=== PATIENT | male | born 1935 | race Caucasian/White ===

== ENCOUNTER 2021-04-17 15:40 | Inpatient (IN) | payer OTHER ==
[2021-04-17 16:04] VITALS: BMI 28.7
[2021-04-17] MEDS ORDERED: VANCOMYCIN 1 GM in D5W (PRE-DOCKED) 1,000 MG/250 ML IVPB ONE (17:24)
[2021-04-17] MEDS ORDERED: DIPHTH,PERTUSS(ACELL),TET 0.5 ML DISP.SYRIN IM ONE (17:54)
[2021-04-17] MEDS ORDERED: VANCOMYCIN 1 GRAM (PRE-DOCKED) 1,000 MG/250 ML BAG IVPB ONE (18:11)
[2021-04-17 18:24] LABS: BASO % 0.2 % (0-2.0); EOS % 2.6 % (0-4.5); HEMOGLOBIN 12.2 GM/dL (11.7-16.9); LYMPH % 6.9 % (8-40); MCH 29.6 pg (25.7-33.7); MCHC 34.8 g/dl (32.0-35.9); MEAN PLT VOLUME 7.1 fl (7.5-11.1); MONO % 6.8 % (3.8-10.2); NEUT % 83.5 % (42.8-82.8); PLATELET COUNT 232 10^3/uL (134-434); RBC 4.12 M/mm3 (4.00-5.60); RDW 15.5 % (11.9-15.9); WHITE BLOOD COUNT 11.8 K/mm3 (4.0-10.0)
[2021-04-17 18:40] LABS: CHLORIDE 104 mmol/L (98-107); SODIUM 143 mmol/L (136-145)
[2021-04-17 18:41] LABS: CALCIUM 8.3 mg/dL (8.5-10.1); CO2 29 mmol/L (21-32); GLUCOSE,RANDOM 110 mg/dL (74-106)
[2021-04-17 18:44] LABS: SGOT/AST 14 U/L (15-37); SGPT/ALT 16 U/L (13-61)
[2021-04-17 18:45] LABS: CREATININE 2.1 mg/dL (0.55-1.3)
[2021-04-17 18:46] LABS: BILIRUBIN,TOTAL 0.6 mg/dL (0.2-1); TOT PROT 6.7 g/dl (6.4-8.2)
[2021-04-17 18:47] LABS: ALK PHOS 43 U/L (45-117)
[2021-04-17 18:58] LABS: ANION GAP 10 MMOL/L (8-16)
[2021-04-17] MEDS ORDERED: POTASSIUM CHLORIDE TABS 10 MEQ TABLET.ER (FP) PO ONE (19:02)
[2021-04-17 19:12] LABS: MAGNESIUM 2.6 mg/dL (1.8-2.4)
[2021-04-17] MEDS ORDERED: POTASSIUM CHLORIDE TABS 20 MEQ TABLET.ER (FP) PO ONE (19:45)
[2021-04-17] MEDS ORDERED: PIPERACILLIN/TAZOB 2.25 GM 2.25 GM/50 ML BAG IVPB ONE (23:24)
[2021-04-17] MEDS ORDERED: KCL 10 MEQ IVPB 10 MEQ/100 ML INFUS.BAG IVPB ONE (23:33)
[2021-04-17] MEDS: KCL 10 MEQ IVPB 10 MEQ/100 ML INFUS.BAG IVPB SCH (23:49)
[2021-04-18 00:11] LABS: EPI CELLS >36 /uL (0-25.1); HYALINE CASTS 17 /uL (0-3.1); PH,URINE 5.5 (5.0-8.0); URINE APPEARANCE CLEAR; URINE BACTERIA 5 /uL (0-1359); URINE BILIRUBIN NEGATIVE (NEGATIVE); URINE COLOR YELLOW; URINE GLUCOSE (UA) NEGATIVE (NEGATIVE); URINE KETONE NEGATIVE (NEGATIVE); URINE LEUK ESTERASE NEGATIVE (NEGATIVE); URINE NITRITE NEGATIVE (NEGATIVE); URINE PROTEIN 1+ (NEGATIVE); URINE RBC 11 /uL (0-23.9); URINE WBC 21 /uL (0-25.8)
[2021-04-18 00:17] LABS: CHLORIDE 105 mmol/L (98-107); SODIUM 142 mmol/L (136-145)
[2021-04-18 00:20] LABS: BLOOD UREA NITROGEN 36.2 mg/dL (7-18); CO2 31 mmol/L (21-32); GLUCOSE,RANDOM 146 mg/dL (74-106)
[2021-04-18 00:23] LABS: CREATININE 1.9 mg/dL (0.55-1.3)
[2021-04-18] MEDS ORDERED: KCL 10 MEQ IVPB 10 MEQ/100 ML INFUS.BAG IVPB ONE ×2 (00:49→02:15)
[2021-04-18] MEDS: KCL 10 MEQ IVPB 10 MEQ/100 ML INFUS.BAG IVPB SCH ×5 (01:01→11:47)
[2021-04-18 01:19] LABS: ANION GAP 7 MMOL/L (8-16)
[2021-04-18] MEDS ORDERED: ACETAMINOPHEN 1000 MG/100 ML VIAL IVPB ONE (06:10)
[2021-04-18] MEDS: HEPARIN NA (PORCINE) 5,000 UNITS/ML 1ML VIAL SQ SCH ×3 (06:12→21:41)
[2021-04-18 06:52] LABS: BASO % 0.4 % (0-2.0); EOS % 2.7 % (0-4.5); HEMATOCRIT 32.6 % (35.4-49); HEMOGLOBIN 11.2 GM/dL (11.7-16.9); LYMPH % 7.9 % (8-40); MCH 29.8 pg (25.7-33.7); MCHC 34.5 g/dl (32.0-35.9); MEAN CELL VOLUME 86.4 fl (80-96); MEAN PLT VOLUME 7.2 fl (7.5-11.1); MONO % 7.6 % (3.8-10.2); NEUT % 81.4 % (42.8-82.8); PLATELET COUNT 197 10^3/uL (134-434); RBC 3.77 M/mm3 (4.00-5.60); WHITE BLOOD COUNT 8.6 K/mm3 (4.0-10.0)
[2021-04-18 07:06] LABS: CHLORIDE 106 mmol/L (98-107); SODIUM 143 mmol/L (136-145)
[2021-04-18 07:12] LABS: CO2 28 mmol/L (21-32); URIC ACID 4.9 mg/dL (2.6-7.2)
[2021-04-18 07:13] LABS: CREATININE 1.7 mg/dL (0.55-1.3); MAGNESIUM 2.5 mg/dL (1.8-2.4); SGOT/AST 15 U/L (15-37); SGPT/ALT 13 U/L (13-61)
[2021-04-18 07:14] LABS: ALBUMIN 2.6 g/dl (3.4-5.0); BLOOD UREA NITROGEN 35.9 mg/dL (7-18); CALCIUM 8.1 mg/dL (8.5-10.1)
[2021-04-18 07:15] LABS: GLUCOSE,RANDOM 94 mg/dL (74-106)
[2021-04-18 07:18] LABS: PHOSPHOROUS 3.5 mg/dL (2.5-4.9)
[2021-04-18 07:19] LABS: ALK PHOS 40 U/L (45-117); BILIRUBIN,TOTAL 0.5 mg/dL (0.2-1)
[2021-04-18 07:23] LABS: ANION GAP 9 MMOL/L (8-16)
[2021-04-18] MEDS ORDERED: POTASSIUM CHLORIDE TABS 20 MEQ TABLET.ER (FP) PO ONE (08:34)
[2021-04-18] MEDS ORDERED: PT OWN MED DRAWER 7, Y5N ONE (09:09)
[2021-04-18] MEDS: CARVEDILOL 12.5 MG TABLET (FP) PO SCH ×2 (09:20→21:40)
[2021-04-18] MEDS: amLODIPine BESYLATE 10 MG TABLET (FP) PO SCH (09:20)
[2021-04-18] MEDS ORDERED: LINEZOLID 600 MG TABLET (RESTRICTED TO ID) PO SCH ×2 (10:00)
[2021-04-18] MEDS ORDERED: AMPICILLIN NA/SULBACTAM NA 3 GM VIAL ONE ×3 (12:55→23:59)
[2021-04-18] MEDS ORDERED: SODIUM CHLORIDE 100 ML IVPB ONE ×2 (12:55→16:50)
[2021-04-18] MEDS: AMPICILLIN NA/SULBACTAM NA 3 GM in SODIUM CHLORIDE 100 ML IVPB SCH ×2 (12:59→18:22)
[2021-04-18] MEDS: ATORVASTATIN CA 40 MG TABLET (FP) PO SCH (21:46)
[2021-04-19] MEDS: AMPICILLIN NA/SULBACTAM NA 3 GM in SODIUM CHLORIDE 100 ML IVPB SCH ×3 (02:03→17:31)
[2021-04-19] MEDS: HEPARIN NA (PORCINE) 5,000 UNITS/ML 1ML VIAL SQ SCH ×3 (06:42→21:52)
[2021-04-19] MEDS: ACETAMINOPHEN 325 MG TABLET (FP) PO PRN ×2 (06:43→21:53)
[2021-04-19 07:30] LABS: BASO % 0.4 % (0-2.0); EOS % 3.3 % (0-4.5); HEMATOCRIT 34.4 % (35.4-49); HEMOGLOBIN 11.8 GM/dL (11.7-16.9); LYMPH % 6.8 % (8-40); MCH 29.3 pg (25.7-33.7); MCHC 34.2 g/dl (32.0-35.9); MEAN CELL VOLUME 85.7 fl (80-96); MEAN PLT VOLUME 6.9 fl (7.5-11.1); MONO % 6.7 % (3.8-10.2); NEUT % 82.8 % (42.8-82.8); PLATELET COUNT 238 10^3/uL (134-434); RBC 4.01 M/mm3 (4.00-5.60); RDW 15.2 % (11.9-15.9); WHITE BLOOD COUNT 8.4 K/mm3 (4.0-10.0)
[2021-04-19 07:48] LABS: ALBUMIN 2.8 g/dl (3.4-5.0)
[2021-04-19 07:49] LABS: BLOOD UREA NITROGEN 22.4 mg/dL (7-18); CALCIUM 8.6 mg/dL (8.5-10.1); MAGNESIUM 2.8 mg/dL (1.8-2.4)
[2021-04-19 07:52] LABS: CREATININE 1.4 mg/dL (0.55-1.3); PHOSPHOROUS 2.6 mg/dL (2.5-4.9)
[2021-04-19 07:53] LABS: BILIRUBIN,TOTAL 0.6 mg/dL (0.2-1); TOT PROT 6.5 g/dl (6.4-8.2)
[2021-04-19] MEDS ORDERED: AMPICILLIN NA/SULBACTAM NA 3 GM VIAL ONE ×2 (07:53→16:22)
[2021-04-19] MEDS ORDERED: SODIUM CHLORIDE 100 ML IVPB ONE ×3 (07:53→16:22)
[2021-04-19] MEDS ORDERED: POTASSIUM CHLORIDE ORAL LIQUID 20 MEQ/15 ML PO ONE (08:10)
[2021-04-19] MEDS: amLODIPine BESYLATE 10 MG TABLET (FP) PO SCH (11:41)
[2021-04-19] MEDS: ASPIRIN 81 MG CHEWABLE TABLETS PO SCH (11:41)
[2021-04-19] MEDS: CARVEDILOL 12.5 MG TABLET (FP) PO SCH ×2 (11:41→22:09)
[2021-04-19] MEDS ORDERED: FLU VACC QS2021-22(6MOS UP)/PF 60 MCG/0.5 ML SYRINGE IM ONE (17:00)
[2021-04-19] MEDS: LEVALBUTEROL HCL 0.31 MG/3 ML VIAL.NEB IH PRN ×2 (19:01→22:51)
[2021-04-19] MEDS: ATORVASTATIN CA 40 MG TABLET (FP) PO SCH (21:52)
[2021-04-20] MEDS ORDERED: AMPICILLIN NA/SULBACTAM NA 3 GM VIAL ONE ×2 (02:37→08:39)
[2021-04-20] MEDS ORDERED: SODIUM CHLORIDE 100 ML IVPB ONE ×2 (02:38→08:39)
[2021-04-20] MEDS: AMPICILLIN NA/SULBACTAM NA 3 GM in SODIUM CHLORIDE 100 ML IVPB SCH ×3 (02:50→17:57)
[2021-04-20] MEDS: HEPARIN NA (PORCINE) 5,000 UNITS/ML 1ML VIAL SQ SCH ×3 (06:36→21:47)
[2021-04-20 08:34] LABS: BASO % 0.8 % (0-2.0); EOS % 2.9 % (0-4.5); HEMATOCRIT 33.9 % (35.4-49); HEMOGLOBIN 11.7 GM/dL (11.7-16.9); MCH 29.6 pg (25.7-33.7); MCHC 34.6 g/dl (32.0-35.9); MEAN CELL VOLUME 85.3 fl (80-96); MEAN PLT VOLUME 6.9 fl (7.5-11.1); MONO % 12.2 % (3.8-10.2); NEUT % 73.1 % (42.8-82.8); PLATELET COUNT 253 10^3/uL (134-434); RBC 3.97 M/mm3 (4.00-5.60); RDW 15.2 % (11.9-15.9); WHITE BLOOD COUNT 7.1 K/mm3 (4.0-10.0)
[2021-04-20] MEDS: LEVALBUTEROL HCL 0.31 MG/3 ML VIAL.NEB IH PRN ×2 (08:40→14:05)
[2021-04-20 08:57] LABS: ALBUMIN 2.9 g/dl (3.4-5.0); CALCIUM 8.5 mg/dL (8.5-10.1)
[2021-04-20 08:58] LABS: BLOOD UREA NITROGEN 12.8 mg/dL (7-18); MAGNESIUM 2.5 mg/dL (1.8-2.4)
[2021-04-20 09:01] LABS: PHOSPHOROUS 3.2 mg/dL (2.5-4.9)
[2021-04-20 09:02] LABS: BILIRUBIN,TOTAL 0.8 mg/dL (0.2-1); TOT PROT 6.7 g/dl (6.4-8.2)
[2021-04-20] MEDS: ASPIRIN 81 MG CHEWABLE TABLETS PO SCH (09:51)
[2021-04-20] MEDS: CARVEDILOL 25 MG TABLET (FP) PO SCH ×2 (09:51→21:47)
[2021-04-20] MEDS: amLODIPine BESYLATE 10 MG TABLET (FP) PO SCH (09:52)
[2021-04-20] MEDS: POTASSIUM CHLORIDE TABS 20 MEQ TABLET.ER (FP) PO SCH ×2 (13:57→21:46)
[2021-04-20] MEDS: ATORVASTATIN CA 40 MG TABLET (FP) PO SCH (21:48)
[2021-04-21] MEDS ORDERED: SODIUM CHLORIDE 100 ML IVPB ONE ×3 (00:47→16:28)
[2021-04-21] MEDS ORDERED: AMPICILLIN NA/SULBACTAM NA 3 GM VIAL ONE ×3 (00:47→16:28)
[2021-04-21] MEDS: AMPICILLIN NA/SULBACTAM NA 3 GM in SODIUM CHLORIDE 100 ML IVPB SCH ×3 (01:14→17:41)
[2021-04-21] MEDS: HEPARIN NA (PORCINE) 5,000 UNITS/ML 1ML VIAL SQ SCH ×3 (06:23→21:38)
[2021-04-21 07:39] LABS: CALCIUM 8.2 mg/dL (8.5-10.1)
[2021-04-21 07:40] LABS: ALBUMIN 2.5 g/dl (3.4-5.0); BLOOD UREA NITROGEN 15.3 mg/dL (7-18); MAGNESIUM 2.2 mg/dL (1.8-2.4)
[2021-04-21 07:43] LABS: CREATININE 1.1 mg/dL (0.55-1.3)
[2021-04-21 07:45] LABS: BILIRUBIN,TOTAL 0.7 mg/dL (0.2-1)
[2021-04-21 07:46] LABS: TOT PROT 6.1 g/dl (6.4-8.2)
[2021-04-21] MEDS: ASPIRIN 81 MG CHEWABLE TABLETS PO SCH (10:24)
[2021-04-21] MEDS: POTASSIUM CHLORIDE TABS 20 MEQ TABLET.ER (FP) PO SCH ×3 (10:25→21:38)
[2021-04-21] MEDS: CARVEDILOL 25 MG TABLET (FP) PO SCH ×2 (10:25→21:37)
[2021-04-21] MEDS: amLODIPine BESYLATE 10 MG TABLET (FP) PO SCH (10:25)
[2021-04-21] MEDS ORDERED: POTASSIUM CHLORIDE TABS 20 MEQ TABLET.ER (FP) PO SCH (11:00)
[2021-04-21] MEDS: ACETAMINOPHEN 325 MG TABLET (FP) PO PRN (12:20)
[2021-04-21] MEDS: PYRIDOSTIGMINE BROMIDE 60 MG TABLET PO SCH ×2 (13:22→21:37)
[2021-04-21 14:31] LABS: N-TERMINAL BNP 2384.3 pg/ml (5-450)
[2021-04-21] MEDS: LEVALBUTEROL HCL 0.31 MG/3 ML VIAL.NEB IH PRN (19:58)
[2021-04-21] MEDS ORDERED: PT OWN MED DRAWER 7, Y5N ONE (20:49)
[2021-04-21] MEDS: ATORVASTATIN CA 40 MG TABLET (FP) PO SCH (21:38)
[2021-04-22] MEDS ORDERED: AMPICILLIN NA/SULBACTAM NA 3 GM VIAL ONE ×3 (02:17→16:28)
[2021-04-22] MEDS ORDERED: SODIUM CHLORIDE 100 ML IVPB ONE ×3 (02:18→16:28)
[2021-04-22] MEDS: AMPICILLIN NA/SULBACTAM NA 3 GM in SODIUM CHLORIDE 100 ML IVPB SCH ×3 (02:24→17:40)
[2021-04-22] MEDS: HEPARIN NA (PORCINE) 5,000 UNITS/ML 1ML VIAL SQ SCH ×3 (06:22→21:49)
[2021-04-22] MEDS: POTASSIUM CHLORIDE TABS 20 MEQ TABLET.ER (FP) PO SCH ×3 (06:22→21:49)
[2021-04-22 07:39] LABS: BLOOD UREA NITROGEN 13.3 mg/dL (7-18); CALCIUM 7.8 mg/dL (8.5-10.1); MAGNESIUM 1.8 mg/dL (1.8-2.4)
[2021-04-22] MEDS: amLODIPine BESYLATE 10 MG TABLET (FP) PO SCH (09:24)
[2021-04-22] MEDS: CARVEDILOL 25 MG TABLET (FP) PO SCH ×2 (09:24→21:49)
[2021-04-22] MEDS: ASPIRIN 81 MG CHEWABLE TABLETS PO SCH (09:24)
[2021-04-22] MEDS ORDERED: PT OWN MED DRAWER 7, Y5N ONE ×2 (13:54→21:36)
[2021-04-22] MEDS: PYRIDOSTIGMINE BROMIDE 60 MG TABLET PO SCH ×3 (13:58→21:49)
[2021-04-22] MEDS: LEVALBUTEROL HCL 0.31 MG/3 ML VIAL.NEB IH PRN (14:23)
[2021-04-22] MEDS: ATORVASTATIN CA 40 MG TABLET (FP) PO SCH (21:49)
[2021-04-23] MEDS ORDERED: AMPICILLIN NA/SULBACTAM NA 3 GM VIAL ONE ×4 (01:42→16:52)
[2021-04-23] MEDS ORDERED: SODIUM CHLORIDE 100 ML IVPB ONE ×3 (01:42→16:44)
[2021-04-23] MEDS: AMPICILLIN NA/SULBACTAM NA 3 GM in SODIUM CHLORIDE 100 ML IVPB SCH ×3 (02:21→17:11)
[2021-04-23] MEDS: ACETAMINOPHEN 325 MG TABLET (FP) PO PRN ×2 (02:34→09:15)
[2021-04-23] MEDS: LEVALBUTEROL HCL 0.31 MG/3 ML VIAL.NEB IH PRN ×2 (03:57→17:05)
[2021-04-23] MEDS ORDERED: guaiFENesin/D-METHORPHAN HB 10 ML UNIT-DOSE CUPS PO ONE (06:08)
[2021-04-23] MEDS: PYRIDOSTIGMINE BROMIDE 60 MG TABLET PO SCH ×3 (06:15→21:51)
[2021-04-23] MEDS: POTASSIUM CHLORIDE TABS 20 MEQ TABLET.ER (FP) PO SCH ×3 (06:15→21:52)
[2021-04-23] MEDS: HEPARIN NA (PORCINE) 5,000 UNITS/ML 1ML VIAL SQ SCH ×3 (06:15→21:53)
[2021-04-23] MEDS ORDERED: PT OWN MED DRAWER 7, Y5N ONE ×3 (06:40→21:36)
[2021-04-23 07:01] LABS: BASO % 0.6 % (0-2.0); EOS % 1.7 % (0-4.5); HEMATOCRIT 33.3 % (35.4-49); HEMOGLOBIN 11.4 GM/dL (11.7-16.9); LYMPH % 7.9 % (8-40); MCH 29.9 pg (25.7-33.7); MCHC 34.3 g/dl (32.0-35.9); MEAN PLT VOLUME 6.9 fl (7.5-11.1); MONO % 8.1 % (3.8-10.2); NEUT % 81.7 % (42.8-82.8); PLATELET COUNT 348 10^3/uL (134-434); RBC 3.83 M/mm3 (4.00-5.60); RDW 15.5 % (11.9-15.9)
[2021-04-23 07:28] LABS: ALBUMIN 2.6 g/dl (3.4-5.0)
[2021-04-23 07:29] LABS: MAGNESIUM 2.1 mg/dL (1.8-2.4)
[2021-04-23 07:31] LABS: PHOSPHOROUS 3.4 mg/dL (2.5-4.9)
[2021-04-23 07:33] LABS: BILIRUBIN,TOTAL 0.8 mg/dL (0.2-1); TOT PROT 6.6 g/dl (6.4-8.2)
[2021-04-23] MEDS: amLODIPine BESYLATE 10 MG TABLET (FP) PO SCH (09:15)
[2021-04-23] MEDS: CARVEDILOL 25 MG TABLET (FP) PO SCH ×2 (09:15→21:53)
[2021-04-23] MEDS: ASPIRIN 81 MG CHEWABLE TABLETS PO SCH (09:15)
[2021-04-23] MEDS: FUROSEMIDE 40 MG/4 ML INJECTABLE VIAL IVPUSH SCH (09:39)
[2021-04-23] MEDS ORDERED: TORSEMIDE 20 MG TABLET (FP) PO SCH (10:00)
[2021-04-23] MEDS: MENTHOL/PHENOL 1 EACH UD MM PRN (21:50)
[2021-04-24] MEDS: ATORVASTATIN CA 40 MG TABLET (FP) PO SCH ×2 (00:22→21:29)
[2021-04-24] MEDS: ACETAMINOPHEN 325 MG TABLET (FP) PO PRN (00:32)
[2021-04-24] MEDS ORDERED: AMPICILLIN NA/SULBACTAM NA 3 GM VIAL ONE ×2 (03:08→09:14)
[2021-04-24] MEDS ORDERED: SODIUM CHLORIDE 100 ML IVPB ONE ×2 (03:08→09:15)
[2021-04-24] MEDS: AMPICILLIN NA/SULBACTAM NA 3 GM in SODIUM CHLORIDE 100 ML IVPB SCH ×2 (03:16→09:26)
[2021-04-24] MEDS: LEVALBUTEROL HCL 0.31 MG/3 ML VIAL.NEB IH PRN ×3 (04:05→20:10)
[2021-04-24] MEDS: POTASSIUM CHLORIDE TABS 20 MEQ TABLET.ER (FP) PO SCH ×3 (05:56→21:29)
[2021-04-24] MEDS: HEPARIN NA (PORCINE) 5,000 UNITS/ML 1ML VIAL SQ SCH ×3 (05:57→21:30)
[2021-04-24] MEDS: PYRIDOSTIGMINE BROMIDE 60 MG TABLET PO SCH ×3 (05:58→21:30)
[2021-04-24] MEDS: guaiFENesin/D-M SUGAR-FREE/ACLHOL-FREE 118 ML BOTTLE PO PRN ×2 (06:00→10:47)
[2021-04-24] MEDS: MENTHOL/PHENOL 1 EACH UD MM PRN ×3 (06:00→18:09)
[2021-04-24 07:27] LABS: BASO % 0.5 % (0-2.0); EOS % 1.9 % (0-4.5); HEMATOCRIT 31.6 % (35.4-49); LYMPH % 9.9 % (8-40); MCH 29.6 pg (25.7-33.7); MCHC 34.7 g/dl (32.0-35.9); MEAN CELL VOLUME 85.3 fl (80-96); MEAN PLT VOLUME 6.9 fl (7.5-11.1); MONO % 8.8 % (3.8-10.2); NEUT % 78.9 % (42.8-82.8); PLATELET COUNT 317 10^3/uL (134-434); RBC 3.71 M/mm3 (4.00-5.60); RDW 15.4 % (11.9-15.9); WHITE BLOOD COUNT 7.5 K/mm3 (4.0-10.0)
[2021-04-24 08:52] LABS: ALBUMIN 2.4 g/dl (3.4-5.0); BILIRUBIN,TOTAL 0.7 mg/dL (0.2-1); BLOOD UREA NITROGEN 15.5 mg/dL (7-18); CALCIUM 8.2 mg/dL (8.5-10.1); PHOSPHOROUS 3.8 mg/dL (2.5-4.9); TOT PROT 6.4 g/dl (6.4-8.2)
[2021-04-24] MEDS ORDERED: PT OWN MED DRAWER 7, Y5N ONE ×2 (09:16→21:24)
[2021-04-24] MEDS: ASPIRIN 81 MG CHEWABLE TABLETS PO SCH (09:21)
[2021-04-24] MEDS: CARVEDILOL 25 MG TABLET (FP) PO SCH ×2 (09:22→21:30)
[2021-04-24] MEDS: amLODIPine BESYLATE 10 MG TABLET (FP) PO SCH (09:23)
[2021-04-24] MEDS: FUROSEMIDE 40 MG/4 ML INJECTABLE VIAL IVPUSH SCH ×2 (09:23→14:21)
[2021-04-24] MEDS: ACETYLCYSTEINE 20% 200MG/ML 4 ML VIAL *FOR ORAL / INH USE ONLY NEB SCH ×3 (14:56→20:09)
[2021-04-24] MEDS ORDERED: PIPERACILLIN/TAZOBACTAM 3.375 GM VIAL IVPB ONE (17:16)
[2021-04-24] MEDS ORDERED: DEXTROSE 5%-WATER - 50 ML IVPB ONE (17:16)
[2021-04-24] MEDS: PIPERACILLIN/TAZOB 3.375 GM 3.375 GM in DEXTROSE 5%-WATER - 50 ML IVPB SCH (18:09)
[2021-04-25] MEDS ORDERED: DEXTROSE 5%-WATER - 50 ML IVPB ONE ×3 (00:25→17:11)
[2021-04-25] MEDS ORDERED: PIPERACILLIN/TAZOBACTAM 3.375 GM VIAL IVPB ONE ×3 (00:25→17:11)
[2021-04-25] MEDS: PIPERACILLIN/TAZOB 3.375 GM 3.375 GM in DEXTROSE 5%-WATER - 50 ML IVPB SCH ×3 (01:05→17:27)
[2021-04-25] MEDS: guaiFENesin/D-M SUGAR-FREE/ACLHOL-FREE 118 ML BOTTLE PO PRN ×3 (01:58→22:10)
[2021-04-25] MEDS: MENTHOL/PHENOL 1 EACH UD MM PRN ×2 (03:22→15:38)
[2021-04-25] MEDS: LEVALBUTEROL HCL 0.31 MG/3 ML VIAL.NEB IH PRN ×2 (04:52→08:10)
[2021-04-25] MEDS ORDERED: PT OWN MED DRAWER 7, Y5N ONE ×3 (05:24→19:59)
[2021-04-25] MEDS: FUROSEMIDE 40 MG/4 ML INJECTABLE VIAL IVPUSH SCH ×2 (05:27→13:13)
[2021-04-25] MEDS: PYRIDOSTIGMINE BROMIDE 60 MG TABLET PO SCH ×3 (05:27→21:32)
[2021-04-25] MEDS: POTASSIUM CHLORIDE TABS 20 MEQ TABLET.ER (FP) PO SCH (05:27)
[2021-04-25 07:37] LABS: BASO % 0.7 % (0-2.0); EOS % 2.6 % (0-4.5); HEMATOCRIT 31.5 % (35.4-49); HEMOGLOBIN 10.8 GM/dL (11.7-16.9); LYMPH % 7.7 % (8-40); MCH 29.3 pg (25.7-33.7); MCHC 34.2 g/dl (32.0-35.9); MEAN CELL VOLUME 85.7 fl (80-96); MEAN PLT VOLUME 6.7 fl (7.5-11.1); MONO % 9.6 % (3.8-10.2); NEUT % 79.4 % (42.8-82.8); PLATELET COUNT 384 10^3/uL (134-434); RBC 3.67 M/mm3 (4.00-5.60); RDW 15.4 % (11.9-15.9); WHITE BLOOD COUNT 9.2 K/mm3 (4.0-10.0)
[2021-04-25] MEDS: ACETYLCYSTEINE 20% 200MG/ML 4 ML VIAL *FOR ORAL / INH USE ONLY NEB SCH ×4 (08:10→20:02)
[2021-04-25 08:12] LABS: ALBUMIN 2.5 g/dl (3.4-5.0); CALCIUM 8.2 mg/dL (8.5-10.1)
[2021-04-25 08:13] LABS: BLOOD UREA NITROGEN 21.7 mg/dL (7-18); MAGNESIUM 1.9 mg/dL (1.8-2.4)
[2021-04-25 08:15] LABS: CREATININE 1.2 mg/dL (0.55-1.3)
[2021-04-25 08:16] LABS: BILIRUBIN,TOTAL 1.2 mg/dL (0.2-1); TOT PROT 6.4 g/dl (6.4-8.2)
[2021-04-25] MEDS: amLODIPine BESYLATE 10 MG TABLET (FP) PO SCH (09:22)
[2021-04-25] MEDS: CARVEDILOL 25 MG TABLET (FP) PO SCH ×2 (09:23→21:31)
[2021-04-25] MEDS: ASPIRIN 81 MG CHEWABLE TABLETS PO SCH (09:23)
[2021-04-25] MEDS: LEVALBUTEROL HCL 0.31 MG/3 ML VIAL.NEB IH SCH ×3 (12:18→20:02)
[2021-04-25] MEDS: POTASSIUM CHLORIDE ORAL LIQUID 20 MEQ/15 ML PO SCH (13:13)
[2021-04-25] MEDS ORDERED: POTASSIUM CHLORIDE ORAL LIQUID 20 MEQ/15 ML PO SCH (14:00)
[2021-04-25] MEDS: methylPREDNISolone NA SUCC 40 MG/1 ML VIAL IVPUSH SCH ×3 (14:18→21:09)
[2021-04-25] MEDS: ATORVASTATIN CA 40 MG TABLET (FP) PO SCH (21:31)
[2021-04-26] MEDS: LEVALBUTEROL HCL 0.31 MG/3 ML VIAL.NEB IH SCH ×6 (00:32→20:13)
[2021-04-26] MEDS ORDERED: PIPERACILLIN/TAZOBACTAM 3.375 GM VIAL IVPB ONE ×3 (01:20→18:06)
[2021-04-26] MEDS ORDERED: DEXTROSE 5%-WATER - 50 ML IVPB ONE ×3 (01:20→18:06)
[2021-04-26] MEDS: PIPERACILLIN/TAZOB 3.375 GM 3.375 GM in DEXTROSE 5%-WATER - 50 ML IVPB SCH ×3 (01:25→18:13)
[2021-04-26] MEDS: methylPREDNISolone NA SUCC 40 MG/1 ML VIAL IVPUSH SCH ×4 (02:12→22:07)
[2021-04-26] MEDS: PYRIDOSTIGMINE BROMIDE 60 MG TABLET PO SCH ×3 (06:41→22:11)
[2021-04-26] MEDS: FUROSEMIDE 40 MG/4 ML INJECTABLE VIAL IVPUSH SCH ×2 (06:45→14:50)
[2021-04-26 08:10] LABS: HEMATOCRIT 31.3 % (35.4-49); HEMOGLOBIN 10.8 GM/dL (11.7-16.9); MCH 29.8 pg (25.7-33.7); MCHC 34.6 g/dl (32.0-35.9); MEAN CELL VOLUME 86.2 fl (80-96); MEAN PLT VOLUME 7.3 fl (7.5-11.1); PLATELET COUNT 397 10^3/uL (134-434); RBC 3.63 M/mm3 (4.00-5.60); RDW 15.2 % (11.9-15.9); WHITE BLOOD COUNT 9.4 K/mm3 (4.0-10.0)
[2021-04-26 08:13] LABS: ALBUMIN 2.5 g/dl (3.4-5.0); CALCIUM 8.2 mg/dL (8.5-10.1); MAGNESIUM 2.5 mg/dL (1.8-2.4)
[2021-04-26 08:14] LABS: BLOOD UREA NITROGEN 26.4 mg/dL (7-18)
[2021-04-26 08:16] LABS: CREATININE 1.3 mg/dL (0.55-1.3); PHOSPHOROUS 4.6 mg/dL (2.5-4.9)
[2021-04-26 08:18] LABS: BILIRUBIN,TOTAL 0.8 mg/dL (0.2-1); TOT PROT 6.4 g/dl (6.4-8.2)
[2021-04-26] MEDS: ACETYLCYSTEINE 20% 200MG/ML 4 ML VIAL *FOR ORAL / INH USE ONLY NEB SCH ×4 (08:30→20:13)
[2021-04-26] MEDS ORDERED: DOCUSATE SODIUM 100 MG CAPSULE (FP) PO PRN (09:32)
[2021-04-26 10:02] LABS: ANISOCYTOSIS 1+; MACROCYTOSIS 0; OVALOCYTE 1+; PLATELET ESTIMATE NORMAL; TEAR DROP CELLS 1+
[2021-04-26] MEDS: amLODIPine BESYLATE 10 MG TABLET (FP) PO SCH (10:02)
[2021-04-26] MEDS: POLYETHYLENE GLYCOL (HEALTHYLAX) 3350 17 GM PACKET PO SCH (10:03)
[2021-04-26] MEDS: CARVEDILOL 25 MG TABLET (FP) PO SCH ×2 (10:03→22:10)
[2021-04-26] MEDS: POTASSIUM CHLORIDE ORAL LIQUID 20 MEQ/15 ML PO SCH (10:03)
[2021-04-26] MEDS: ASPIRIN 81 MG CHEWABLE TABLETS PO SCH (10:03)
[2021-04-26] MEDS ORDERED: PT OWN MED DRAWER 7, Y5N ONE ×2 (14:41→21:41)
[2021-04-26] MEDS: ATORVASTATIN CA 40 MG TABLET (FP) PO SCH (22:10)
[2021-04-26] MEDS: SENNOSIDES 8.6MG TABLET (FP) PO SCH (22:10)
[2021-04-27] MEDS: LEVALBUTEROL HCL 0.31 MG/3 ML VIAL.NEB IH SCH ×6 (00:28→19:51)
[2021-04-27] MEDS ORDERED: PIPERACILLIN/TAZOBACTAM 3.375 GM VIAL IVPB ONE ×3 (02:31→17:08)
[2021-04-27] MEDS: methylPREDNISolone NA SUCC 40 MG/1 ML VIAL IVPUSH SCH ×3 (02:36→17:15)
[2021-04-27] MEDS: PIPERACILLIN/TAZOB 3.375 GM 3.375 GM in DEXTROSE 5%-WATER - 50 ML IVPB SCH ×3 (02:37→17:15)
[2021-04-27] MEDS ORDERED: PT OWN MED DRAWER 7, Y5N ONE ×3 (05:40→21:21)
[2021-04-27] MEDS: PYRIDOSTIGMINE BROMIDE 60 MG TABLET PO SCH ×3 (05:58→21:32)
[2021-04-27] MEDS: FUROSEMIDE 40 MG/4 ML INJECTABLE VIAL IVPUSH SCH ×2 (05:59→13:43)
[2021-04-27 07:23] LABS: HEMATOCRIT 32.9 % (35.4-49); HEMOGLOBIN 11.1 GM/dL (11.7-16.9); MCH 29.1 pg (25.7-33.7); MCHC 33.6 g/dl (32.0-35.9); MEAN CELL VOLUME 86.6 fl (80-96); MEAN PLT VOLUME 7.3 fl (7.5-11.1); PLATELET COUNT 545 10^3/uL (134-434); RDW 15.2 % (11.9-15.9); WHITE BLOOD COUNT 17.9 K/mm3 (4.0-10.0)
[2021-04-27 07:40] LABS: ALBUMIN 2.8 g/dl (3.4-5.0); BLOOD UREA NITROGEN 34.8 mg/dL (7-18); CALCIUM 8.4 mg/dL (8.5-10.1); MAGNESIUM 2.5 mg/dL (1.8-2.4)
[2021-04-27] MEDS: ACETYLCYSTEINE 20% 200MG/ML 4 ML VIAL *FOR ORAL / INH USE ONLY NEB SCH ×4 (07:40→19:51)
[2021-04-27 07:42] LABS: CREATININE 1.5 mg/dL (0.55-1.3)
[2021-04-27 07:45] LABS: BILIRUBIN,TOTAL 0.6 mg/dL (0.2-1)
[2021-04-27] MEDS ORDERED: DEXTROSE 5%-WATER - 50 ML IVPB ONE ×2 (09:07→17:08)
[2021-04-27] MEDS: CARVEDILOL 25 MG TABLET (FP) PO SCH ×2 (09:15→21:32)
[2021-04-27] MEDS: ASPIRIN 81 MG CHEWABLE TABLETS PO SCH (09:15)
[2021-04-27] MEDS: POLYETHYLENE GLYCOL (HEALTHYLAX) 3350 17 GM PACKET PO SCH (09:15)
[2021-04-27] MEDS: amLODIPine BESYLATE 10 MG TABLET (FP) PO SCH (09:15)
[2021-04-27 09:45] LABS: ANISOCYTOSIS 0; HELMET CELLS 0; HOWELL-JOLLY BODIES 0; MACROCYTOSIS 0; OVALOCYTE 0; PLATELET ESTIMATE INCREASED; ROULEAU 0; SICKELED CELLS 0; TARGET CELLS 0; TEAR DROP CELLS 0; TOXIC GRANULATION 0
[2021-04-27] MEDS: PANTOPRAZOLE 40 MG TABLET PO SCH (12:15)
[2021-04-27] MEDS: guaiFENesin/D-M SUGAR-FREE/ACLHOL-FREE 118 ML BOTTLE PO PRN (21:31)
[2021-04-27] MEDS: HEPARIN NA (PORCINE) 5,000 UNITS/ML 1ML VIAL SQ SCH (21:32)
[2021-04-27] MEDS: SENNOSIDES 8.6MG TABLET (FP) PO SCH (21:32)
[2021-04-27] MEDS: ATORVASTATIN CA 40 MG TABLET (FP) PO SCH (21:32)
[2021-04-28] MEDS: LEVALBUTEROL HCL 0.31 MG/3 ML VIAL.NEB IH SCH ×6 (00:38→20:49)
[2021-04-28] MEDS ORDERED: PT OWN MED DRAWER 7, Y5N ONE ×4 (01:14→20:00)
[2021-04-28] MEDS: MENTHOL/PHENOL 1 EACH UD MM PRN (01:16)
[2021-04-28] MEDS: methylPREDNISolone NA SUCC 40 MG/1 ML VIAL IVPUSH SCH ×2 (03:15→10:16)
[2021-04-28] MEDS: PIPERACILLIN/TAZOB 3.375 GM 3.375 GM in DEXTROSE 5%-WATER - 50 ML IVPB SCH ×3 (03:15→17:37)
[2021-04-28] MEDS ORDERED: PIPERACILLIN/TAZOBACTAM 3.375 GM VIAL IVPB ONE ×3 (03:21→16:52)
[2021-04-28] MEDS ORDERED: DEXTROSE 5%-WATER - 50 ML IVPB ONE ×3 (03:21→16:52)
[2021-04-28] MEDS: PYRIDOSTIGMINE BROMIDE 60 MG TABLET PO SCH ×3 (05:26→21:27)
[2021-04-28] MEDS: FUROSEMIDE 40 MG/4 ML INJECTABLE VIAL IVPUSH SCH (05:26)
[2021-04-28] MEDS: guaiFENesin/D-M SUGAR-FREE/ACLHOL-FREE 118 ML BOTTLE PO PRN (05:26)
[2021-04-28] MEDS: ACETYLCYSTEINE 20% 200MG/ML 4 ML VIAL *FOR ORAL / INH USE ONLY NEB SCH ×4 (07:23→15:11)
[2021-04-28 08:33] LABS: HEMATOCRIT 30.7 % (35.4-49); HEMOGLOBIN 10.6 GM/dL (11.7-16.9); MCH 29.4 pg (25.7-33.7); MCHC 34.5 g/dl (32.0-35.9); MEAN CELL VOLUME 85.5 fl (80-96); PLATELET COUNT 489 10^3/uL (134-434); RBC 3.59 M/mm3 (4.00-5.60); RDW 15.4 % (11.9-15.9); WHITE BLOOD COUNT 13.4 K/mm3 (4.0-10.0)
[2021-04-28 09:11] LABS: BLOOD UREA NITROGEN 43.4 mg/dL (7-18); CALCIUM 7.6 mg/dL (8.5-10.1)
[2021-04-28 09:15] LABS: CREATININE 1.7 mg/dL (0.55-1.3)
[2021-04-28] MEDS: amLODIPine BESYLATE 10 MG TABLET (FP) PO SCH (10:16)
[2021-04-28] MEDS: ASPIRIN 81 MG CHEWABLE TABLETS PO SCH (10:16)
[2021-04-28] MEDS: PANTOPRAZOLE 40 MG TABLET PO SCH (10:16)
[2021-04-28] MEDS: HEPARIN NA (PORCINE) 5,000 UNITS/ML 1ML VIAL SQ SCH ×2 (10:17→21:26)
[2021-04-28] MEDS: POLYETHYLENE GLYCOL (HEALTHYLAX) 3350 17 GM PACKET PO SCH (10:17)
[2021-04-28 11:03] LABS: ANISOCYTOSIS 0; HELMET CELLS 0; HOWELL-JOLLY BODIES 0; MACROCYTOSIS 0; OVALOCYTE 0; PLATELET ESTIMATE INCREASED; ROULEAU 0; SICKELED CELLS 0; TARGET CELLS 0; TEAR DROP CELLS 0; TOXIC GRANULATION 0
[2021-04-28] MEDS: FUROSEMIDE 40 MG TABLET (FP) PO SCH (14:26)
[2021-04-28] MEDS: CARVEDILOL 25 MG TABLET (FP) PO SCH ×2 (14:26→21:26)
[2021-04-28] MEDS: ATORVASTATIN CA 40 MG TABLET (FP) PO SCH (21:27)
[2021-04-28] MEDS: SENNOSIDES 8.6MG TABLET (FP) PO SCH (21:27)
[2021-04-29] MEDS: LEVALBUTEROL HCL 0.31 MG/3 ML VIAL.NEB IH SCH ×6 (00:12→20:10)
[2021-04-29] MEDS ORDERED: DEXTROSE 5%-WATER - 50 ML IVPB ONE ×3 (00:43→18:51)
[2021-04-29] MEDS ORDERED: PIPERACILLIN/TAZOBACTAM 3.375 GM VIAL IVPB ONE ×3 (00:43→18:51)
[2021-04-29] MEDS: PIPERACILLIN/TAZOB 3.375 GM 3.375 GM in DEXTROSE 5%-WATER - 50 ML IVPB SCH ×3 (01:00→18:50)
[2021-04-29] MEDS: FUROSEMIDE 40 MG TABLET (FP) PO SCH ×2 (06:22→14:40)
[2021-04-29] MEDS: PYRIDOSTIGMINE BROMIDE 60 MG TABLET PO SCH ×3 (06:22→21:02)
[2021-04-29] MEDS: ACETYLCYSTEINE 20% 200MG/ML 4 ML VIAL *FOR ORAL / INH USE ONLY NEB SCH ×4 (07:35→21:27)
[2021-04-29 08:04] LABS: HEMATOCRIT 29.5 % (35.4-49); HEMOGLOBIN 10.4 GM/dL (11.7-16.9); MCH 30.1 pg (25.7-33.7); MCHC 35.2 g/dl (32.0-35.9); MEAN CELL VOLUME 85.3 fl (80-96); MEAN PLT VOLUME 7.3 fl (7.5-11.1); PLATELET COUNT 492 10^3/uL (134-434); RBC 3.46 M/mm3 (4.00-5.60); RDW 15.5 % (11.9-15.9); WHITE BLOOD COUNT 11.4 K/mm3 (4.0-10.0)
[2021-04-29 08:22] LABS: CALCIUM 7.5 mg/dL (8.5-10.1)
[2021-04-29 08:24] LABS: ALBUMIN 2.4 g/dl (3.4-5.0); BLOOD UREA NITROGEN 50.6 mg/dL (7-18)
[2021-04-29 08:27] LABS: BILIRUBIN,TOTAL 0.5 mg/dL (0.2-1); CREATININE 1.6 mg/dL (0.55-1.3)
[2021-04-29] MEDS: ASPIRIN 81 MG CHEWABLE TABLETS PO SCH (09:21)
[2021-04-29] MEDS: CARVEDILOL 25 MG TABLET (FP) PO SCH ×2 (09:21→21:02)
[2021-04-29] MEDS: amLODIPine BESYLATE 10 MG TABLET (FP) PO SCH (09:21)
[2021-04-29] MEDS: HEPARIN NA (PORCINE) 5,000 UNITS/ML 1ML VIAL SQ SCH ×2 (09:22→21:01)
[2021-04-29] MEDS: PANTOPRAZOLE 40 MG TABLET PO SCH (09:22)
[2021-04-29] MEDS: POLYETHYLENE GLYCOL (HEALTHYLAX) 3350 17 GM PACKET PO SCH (09:23)
[2021-04-29] MEDS: methylPREDNISolone NA SUCC 40 MG/1 ML VIAL IVPUSH SCH (09:23)
[2021-04-29] MEDS ORDERED: LEVALBUTEROL HCL 0.63 MG/3 ML VIAL.NEB. IH ONE (20:24)
[2021-04-29] MEDS ORDERED: PT OWN MED DRAWER 7, Y5N ONE (20:50)
[2021-04-29] MEDS: ATORVASTATIN CA 40 MG TABLET (FP) PO SCH (21:02)
[2021-04-29] MEDS: SENNOSIDES 8.6MG TABLET (FP) PO SCH (21:02)
[2021-04-29] MEDS: guaiFENesin/D-M SUGAR-FREE/ACLHOL-FREE 118 ML BOTTLE PO PRN (22:10)
[2021-04-30] MEDS: LEVALBUTEROL HCL 0.31 MG/3 ML VIAL.NEB IH SCH ×3 (00:11→08:25)
[2021-04-30] MEDS ORDERED: PIPERACILLIN/TAZOBACTAM 3.375 GM VIAL IVPB ONE ×2 (01:18→08:22)
[2021-04-30] MEDS ORDERED: DEXTROSE 5%-WATER - 50 ML IVPB ONE ×2 (01:18→08:22)
[2021-04-30] MEDS: PIPERACILLIN/TAZOB 3.375 GM 3.375 GM in DEXTROSE 5%-WATER - 50 ML IVPB SCH ×2 (01:44→09:37)
[2021-04-30] MEDS: PYRIDOSTIGMINE BROMIDE 60 MG TABLET PO SCH ×3 (05:24→22:20)
[2021-04-30] MEDS: FUROSEMIDE 40 MG TABLET (FP) PO SCH (05:24)
[2021-04-30] MEDS: guaiFENesin/D-M SUGAR-FREE/ACLHOL-FREE 118 ML BOTTLE PO PRN (05:26)
[2021-04-30 08:26] LABS: BASO % 0.1 % (0-2.0); HEMATOCRIT 30.1 % (35.4-49); HEMOGLOBIN 10.7 GM/dL (11.7-16.9); LYMPH % 5.4 % (8-40); MCH 30.1 pg (25.7-33.7); MCHC 35.5 g/dl (32.0-35.9); MEAN CELL VOLUME 84.7 fl (80-96); NEUT % 86.5 % (42.8-82.8); PLATELET COUNT 497 10^3/uL (134-434); RBC 3.55 M/mm3 (4.00-5.60); RDW 15.2 % (11.9-15.9); WHITE BLOOD COUNT 11.6 K/mm3 (4.0-10.0)
[2021-04-30] MEDS: ACETYLCYSTEINE 20% 200MG/ML 4 ML VIAL *FOR ORAL / INH USE ONLY NEB SCH ×4 (08:26→21:00)
[2021-04-30 08:56] LABS: ALBUMIN 2.3 g/dl (3.4-5.0); BLOOD UREA NITROGEN 45.8 mg/dL (7-18); CALCIUM 7.4 mg/dL (8.5-10.1)
[2021-04-30 08:57] LABS: MAGNESIUM 2.3 mg/dL (1.8-2.4)
[2021-04-30 09:00] LABS: CREATININE 1.6 mg/dL (0.55-1.3); PHOSPHOROUS 4.5 mg/dL (2.5-4.9)
[2021-04-30 09:02] LABS: BILIRUBIN,TOTAL 0.5 mg/dL (0.2-1); TOT PROT 5.9 g/dl (6.4-8.2)
[2021-04-30] MEDS: PANTOPRAZOLE 40 MG TABLET PO SCH (09:37)
[2021-04-30] MEDS: amLODIPine BESYLATE 10 MG TABLET (FP) PO SCH (09:37)
[2021-04-30] MEDS: CARVEDILOL 25 MG TABLET (FP) PO SCH ×2 (09:37→22:19)
[2021-04-30] MEDS: HEPARIN NA (PORCINE) 5,000 UNITS/ML 1ML VIAL SQ SCH ×2 (09:37→22:19)
[2021-04-30] MEDS: ASPIRIN 81 MG CHEWABLE TABLETS PO SCH (09:37)
[2021-04-30] MEDS: POLYETHYLENE GLYCOL (HEALTHYLAX) 3350 17 GM PACKET PO SCH (09:37)
[2021-04-30] MEDS: methylPREDNISolone NA SUCC 40 MG/1 ML VIAL IVPUSH SCH (09:37)
[2021-04-30] MEDS: FUROSEMIDE 40 MG/4 ML INJECTABLE VIAL IVPUSH SCH (13:46)
[2021-04-30] MEDS: AMOX TR/POT CLAV 500MG/125MG TABLETS (FP) PO SCH (19:01)
[2021-04-30] MEDS ORDERED: LEVALBUTEROL HCL 0.31 MG/3 ML VIAL.NEB IH ONE (20:56)
[2021-04-30] MEDS ORDERED: ALBUTEROL SO4 0.083% IH SOL 2.5 MG/3 ML VIAL.NEB. NEB ONE (21:00)
[2021-04-30] MEDS ORDERED: PT OWN MED DRAWER 7, Y5N ONE (22:17)
[2021-04-30] MEDS: SENNOSIDES 8.6MG TABLET (FP) PO SCH (22:20)
[2021-04-30] MEDS: ATORVASTATIN CA 40 MG TABLET (FP) PO SCH (22:20)
[2021-05-01] MEDS: FUROSEMIDE 40 MG/4 ML INJECTABLE VIAL IVPUSH SCH ×2 (05:21→15:05)
[2021-05-01] MEDS: PYRIDOSTIGMINE BROMIDE 60 MG TABLET PO SCH ×3 (05:25→21:00)
[2021-05-01 07:59] LABS: BASO % 0.1 % (0-2.0); EOS % 0.1 % (0-4.5); HEMATOCRIT 33.4 % (35.4-49); HEMOGLOBIN 11.5 GM/dL (11.7-16.9); LYMPH % 6.8 % (8-40); MCH 29.4 pg (25.7-33.7); MCHC 34.3 g/dl (32.0-35.9); MEAN CELL VOLUME 85.9 fl (80-96); MEAN PLT VOLUME 7.1 fl (7.5-11.1); MONO % 8.9 % (3.8-10.2); NEUT % 84.1 % (42.8-82.8); PLATELET COUNT 577 10^3/uL (134-434); RBC 3.89 M/mm3 (4.00-5.60); RDW 15.1 % (11.9-15.9); WHITE BLOOD COUNT 10.9 K/mm3 (4.0-10.0)
[2021-05-01 08:14] LABS: CALCIUM 7.8 mg/dL (8.5-10.1)
[2021-05-01 08:15] LABS: ALBUMIN 2.3 g/dl (3.4-5.0); BLOOD UREA NITROGEN 41.3 mg/dL (7-18); MAGNESIUM 2.5 mg/dL (1.8-2.4)
[2021-05-01 08:18] LABS: CREATININE 1.4 mg/dL (0.55-1.3); PHOSPHOROUS 3.6 mg/dL (2.5-4.9)
[2021-05-01 08:20] LABS: BILIRUBIN,TOTAL 0.4 mg/dL (0.2-1); TOT PROT 5.9 g/dl (6.4-8.2)
[2021-05-01] MEDS: ACETYLCYSTEINE 20% 200MG/ML 4 ML VIAL *FOR ORAL / INH USE ONLY NEB SCH ×4 (09:00→20:10)
[2021-05-01] MEDS: AMOX TR/POT CLAV 500MG/125MG TABLETS (FP) PO SCH ×2 (09:31→17:22)
[2021-05-01] MEDS: ASPIRIN 81 MG CHEWABLE TABLETS PO SCH (09:32)
[2021-05-01] MEDS: HEPARIN NA (PORCINE) 5,000 UNITS/ML 1ML VIAL SQ SCH ×2 (09:32→21:01)
[2021-05-01] MEDS: PANTOPRAZOLE 40 MG TABLET PO SCH (09:32)
[2021-05-01] MEDS: methylPREDNISolone NA SUCC 40 MG/1 ML VIAL IVPUSH SCH (09:32)
[2021-05-01] MEDS: CARVEDILOL 25 MG TABLET (FP) PO SCH (09:32)
[2021-05-01] MEDS: amLODIPine BESYLATE 10 MG TABLET (FP) PO SCH (09:32)
[2021-05-01] MEDS: POLYETHYLENE GLYCOL (HEALTHYLAX) 3350 17 GM PACKET PO SCH (09:32)
[2021-05-01] MEDS ORDERED: LEVALBUTEROL HCL 0.31 MG/3 ML VIAL.NEB IH PRN (10:28)
[2021-05-01] MEDS ORDERED: PT OWN MED DRAWER 7, Y5N ONE ×3 (14:55→20:52)
[2021-05-01] MEDS: LEVALBUTEROL HCL 0.31 MG/3 ML VIAL.NEB IH PRN ×2 (16:00→20:10)
[2021-05-01] MEDS: SENNOSIDES 8.6MG TABLET (FP) PO SCH (21:00)
[2021-05-01] MEDS: CARVEDILOL 12.5 MG TABLET (FP) PO SCH (21:00)
[2021-05-01] MEDS: ATORVASTATIN CA 40 MG TABLET (FP) PO SCH (21:00)
[2021-05-02] MEDS: PYRIDOSTIGMINE BROMIDE 60 MG TABLET PO SCH ×3 (05:10→21:31)
[2021-05-02] MEDS: FUROSEMIDE 40 MG/4 ML INJECTABLE VIAL IVPUSH SCH ×2 (05:10→15:28)
[2021-05-02 07:18] LABS: HEMATOCRIT 35.2 % (35.4-49); HEMOGLOBIN 12.3 GM/dL (11.7-16.9); MCH 29.8 pg (25.7-33.7); MCHC 34.9 g/dl (32.0-35.9); MEAN CELL VOLUME 85.6 fl (80-96); PLATELET COUNT 624 10^3/uL (134-434); RBC 4.11 M/mm3 (4.00-5.60); RDW 15.2 % (11.9-15.9); WHITE BLOOD COUNT 10.7 K/mm3 (4.0-10.0)
[2021-05-02] MEDS: LEVALBUTEROL HCL 0.31 MG/3 ML VIAL.NEB IH PRN ×3 (07:25→20:26)
[2021-05-02] MEDS: ACETYLCYSTEINE 20% 200MG/ML 4 ML VIAL *FOR ORAL / INH USE ONLY NEB SCH ×4 (07:25→20:26)
[2021-05-02 07:50] LABS: ALBUMIN 2.6 g/dl (3.4-5.0)
[2021-05-02 07:51] LABS: MAGNESIUM 2.7 mg/dL (1.8-2.4)
[2021-05-02 07:54] LABS: CREATININE 1.2 mg/dL (0.55-1.3); PHOSPHOROUS 3.5 mg/dL (2.5-4.9)
[2021-05-02 07:56] LABS: BILIRUBIN,TOTAL 0.6 mg/dL (0.2-1); TOT PROT 6.1 g/dl (6.4-8.2)
[2021-05-02] MEDS: AMOX TR/POT CLAV 500MG/125MG TABLETS (FP) PO SCH ×2 (08:22→18:53)
[2021-05-02 09:43] LABS: ANISOCYTOSIS 0; HELMET CELLS 0; HOWELL-JOLLY BODIES 0; MACROCYTOSIS 0; OVALOCYTE 0; PLATELET ESTIMATE INCREASED; ROULEAU 0; SICKELED CELLS 0; TARGET CELLS 0; TEAR DROP CELLS 0; TOXIC GRANULATION 0
[2021-05-02] MEDS: POLYETHYLENE GLYCOL (HEALTHYLAX) 3350 17 GM PACKET PO SCH (10:11)
[2021-05-02] MEDS: CARVEDILOL 12.5 MG TABLET (FP) PO SCH ×2 (10:13→21:31)
[2021-05-02] MEDS: PANTOPRAZOLE 40 MG TABLET PO SCH (10:13)
[2021-05-02] MEDS: amLODIPine BESYLATE 10 MG TABLET (FP) PO SCH (10:13)
[2021-05-02] MEDS: ASPIRIN 81 MG CHEWABLE TABLETS PO SCH (10:13)
[2021-05-02] MEDS: HEPARIN NA (PORCINE) 5,000 UNITS/ML 1ML VIAL SQ SCH ×2 (10:13→21:35)
[2021-05-02] MEDS: methylPREDNISolone NA SUCC 40 MG/1 ML VIAL IVPUSH SCH (10:14)
[2021-05-02] MEDS ORDERED: PT OWN MED DRAWER 7, Y5N ONE ×4 (13:59→20:25)
[2021-05-02] MEDS: ATORVASTATIN CA 40 MG TABLET (FP) PO SCH (21:31)
[2021-05-02] MEDS: SENNOSIDES 8.6MG TABLET (FP) PO SCH (21:31)
[2021-05-03] MEDS ORDERED: PT OWN MED DRAWER 7, Y5N ONE ×2 (05:48→14:21)
[2021-05-03] MEDS: FUROSEMIDE 40 MG/4 ML INJECTABLE VIAL IVPUSH SCH ×2 (06:06→14:32)
[2021-05-03] MEDS: PYRIDOSTIGMINE BROMIDE 60 MG TABLET PO SCH ×3 (06:06→22:04)
[2021-05-03 07:17] LABS: BASO % 0.1 % (0-2.0); EOS % 0.1 % (0-4.5); LYMPH % 6.6 % (8-40); MCH 29.5 pg (25.7-33.7); MCHC 34.4 g/dl (32.0-35.9); MEAN CELL VOLUME 85.8 fl (80-96); MEAN PLT VOLUME 6.9 fl (7.5-11.1); MONO % 8.6 % (3.8-10.2); NEUT % 84.6 % (42.8-82.8); PLATELET COUNT 596 10^3/uL (134-434); RBC 4.07 M/mm3 (4.00-5.60); RDW 15.4 % (11.9-15.9)
[2021-05-03 07:51] LABS: ALBUMIN 2.4 g/dl (3.4-5.0); BILIRUBIN,TOTAL 0.5 mg/dL (0.2-1); BLOOD UREA NITROGEN 31.2 mg/dL (7-18); TOT PROT 6.1 g/dl (6.4-8.2)
[2021-05-03 07:54] LABS: CREATININE 1.2 mg/dL (0.55-1.3); PHOSPHOROUS 3.3 mg/dL (2.5-4.9)
[2021-05-03 07:58] LABS: CALCIUM 8.6 mg/dL (8.5-10.1); MAGNESIUM 2.6 mg/dL (1.8-2.4)
[2021-05-03] MEDS: LEVALBUTEROL HCL 0.31 MG/3 ML VIAL.NEB IH PRN ×3 (08:35→20:37)
[2021-05-03] MEDS: ACETYLCYSTEINE 20% 200MG/ML 4 ML VIAL *FOR ORAL / INH USE ONLY NEB SCH ×4 (08:35→20:36)
[2021-05-03] MEDS: AMOX TR/POT CLAV 500MG/125MG TABLETS (FP) PO SCH (09:05)
[2021-05-03] MEDS: CARVEDILOL 12.5 MG TABLET (FP) PO SCH ×2 (09:05→22:04)
[2021-05-03] MEDS: HEPARIN NA (PORCINE) 5,000 UNITS/ML 1ML VIAL SQ SCH ×2 (09:06→22:04)
[2021-05-03] MEDS: amLODIPine BESYLATE 10 MG TABLET (FP) PO SCH (09:06)
[2021-05-03] MEDS: ASPIRIN 81 MG CHEWABLE TABLETS PO SCH (09:06)
[2021-05-03] MEDS: PANTOPRAZOLE 40 MG TABLET PO SCH (09:06)
[2021-05-03] MEDS: POLYETHYLENE GLYCOL (HEALTHYLAX) 3350 17 GM PACKET PO SCH (14:32)
[2021-05-03] MEDS: MENTHOL/PHENOL 1 EACH UD MM PRN (14:33)
[2021-05-03] MEDS: ATORVASTATIN CA 40 MG TABLET (FP) PO SCH (22:04)
[2021-05-03] MEDS: SENNOSIDES 8.6MG TABLET (FP) PO SCH (22:04)
[2021-05-04] MEDS: FUROSEMIDE 40 MG/4 ML INJECTABLE VIAL IVPUSH SCH ×2 (05:37→13:42)
[2021-05-04] MEDS: PYRIDOSTIGMINE BROMIDE 60 MG TABLET PO SCH ×3 (05:37→21:10)
[2021-05-04] MEDS: ACETYLCYSTEINE 20% 200MG/ML 4 ML VIAL *FOR ORAL / INH USE ONLY NEB SCH ×4 (07:34→21:00)
[2021-05-04] MEDS: LEVALBUTEROL HCL 0.31 MG/3 ML VIAL.NEB IH PRN ×3 (07:34→21:00)
[2021-05-04 08:32] LABS: BASO % 0.3 % (0-2.0); EOS % 0.2 % (0-4.5); HEMATOCRIT 37.2 % (35.4-49); LYMPH % 6.5 % (8-40); MCH 29.7 pg (25.7-33.7); MCHC 34.9 g/dl (32.0-35.9); MEAN PLT VOLUME 6.8 fl (7.5-11.1); MONO % 8.3 % (3.8-10.2); NEUT % 84.7 % (42.8-82.8); PLATELET COUNT 491 10^3/uL (134-434); RBC 4.37 M/mm3 (4.00-5.60); RDW 15.6 % (11.9-15.9); WHITE BLOOD COUNT 16.7 K/mm3 (4.0-10.0)
[2021-05-04 08:50] LABS: ALBUMIN 2.5 g/dl (3.4-5.0); BLOOD UREA NITROGEN 29.2 mg/dL (7-18)
[2021-05-04 08:53] LABS: CALCIUM 8.4 mg/dL (8.5-10.1)
[2021-05-04 08:54] LABS: CREATININE 1.1 mg/dL (0.55-1.3); MAGNESIUM 2.2 mg/dL (1.8-2.4); PHOSPHOROUS 3.2 mg/dL (2.5-4.9)
[2021-05-04 08:55] LABS: BILIRUBIN,TOTAL 1.2 mg/dL (0.2-1); TOT PROT 6.2 g/dl (6.4-8.2)
[2021-05-04] MEDS: amLODIPine BESYLATE 10 MG TABLET (FP) PO SCH (09:26)
[2021-05-04] MEDS: POLYETHYLENE GLYCOL (HEALTHYLAX) 3350 17 GM PACKET PO SCH (09:26)
[2021-05-04] MEDS: PANTOPRAZOLE 40 MG TABLET PO SCH (09:26)
[2021-05-04] MEDS: ASPIRIN 81 MG CHEWABLE TABLETS PO SCH (09:26)
[2021-05-04] MEDS: CARVEDILOL 12.5 MG TABLET (FP) PO SCH ×2 (09:26→21:07)
[2021-05-04] MEDS: HEPARIN NA (PORCINE) 5,000 UNITS/ML 1ML VIAL SQ SCH (09:26)
[2021-05-04] MEDS ORDERED: PT OWN MED DRAWER 7, Y5N ONE ×3 (13:35→21:10)
[2021-05-04] MEDS: ATORVASTATIN CA 40 MG TABLET (FP) PO SCH (21:07)
[2021-05-04] MEDS: SENNOSIDES 8.6MG TABLET (FP) PO SCH (21:08)
[2021-05-04] MEDS: guaiFENesin/D-M SUGAR-FREE/ACLHOL-FREE 118 ML BOTTLE PO PRN (21:08)
[2021-05-05] MEDS ORDERED: PT OWN MED DRAWER 7, Y5N ONE ×3 (06:05→21:02)
[2021-05-05] MEDS: FUROSEMIDE 40 MG/4 ML INJECTABLE VIAL IVPUSH SCH (06:23)
[2021-05-05] MEDS: PYRIDOSTIGMINE BROMIDE 60 MG TABLET PO SCH ×3 (06:23→21:03)
[2021-05-05] MEDS: guaiFENesin/D-M SUGAR-FREE/ACLHOL-FREE 118 ML BOTTLE PO PRN (06:24)
[2021-05-05] MEDS: ACETAMINOPHEN 325 MG TABLET (FP) PO PRN ×2 (06:24→22:57)
[2021-05-05 07:57] LABS: BASO % 0.1 % (0-2.0); EOS % 1.5 % (0-4.5); HEMATOCRIT 34.6 % (35.4-49); HEMOGLOBIN 12.2 GM/dL (11.7-16.9); LYMPH % 8.1 % (8-40); MCH 30.1 pg (25.7-33.7); MCHC 35.3 g/dl (32.0-35.9); MEAN CELL VOLUME 85.3 fl (80-96); MONO % 8.1 % (3.8-10.2); NEUT % 82.2 % (42.8-82.8); PLATELET COUNT 454 10^3/uL (134-434); RBC 4.06 M/mm3 (4.00-5.60); RDW 15.7 % (11.9-15.9); WHITE BLOOD COUNT 11.7 K/mm3 (4.0-10.0)
[2021-05-05] MEDS: ACETYLCYSTEINE 20% 200MG/ML 4 ML VIAL *FOR ORAL / INH USE ONLY NEB SCH ×4 (08:10→20:46)
[2021-05-05 08:11] LABS: CALCIUM 8.1 mg/dL (8.5-10.1)
[2021-05-05 08:12] LABS: ALBUMIN 2.4 g/dl (3.4-5.0); BLOOD UREA NITROGEN 29.6 mg/dL (7-18)
[2021-05-05 08:15] LABS: CREATININE 1.3 mg/dL (0.55-1.3)
[2021-05-05 08:16] LABS: BILIRUBIN,TOTAL 0.6 mg/dL (0.2-1)
[2021-05-05] MEDS: LEVALBUTEROL HCL 0.31 MG/3 ML VIAL.NEB IH PRN ×3 (08:34→15:43)
[2021-05-05] MEDS: PANTOPRAZOLE 40 MG TABLET PO SCH (10:56)
[2021-05-05] MEDS: amLODIPine BESYLATE 10 MG TABLET (FP) PO SCH (10:56)
[2021-05-05] MEDS: CARVEDILOL 12.5 MG TABLET (FP) PO SCH ×2 (10:56→21:03)
[2021-05-05] MEDS: ASPIRIN 81 MG CHEWABLE TABLETS PO SCH (10:57)
[2021-05-05] MEDS: POLYETHYLENE GLYCOL (HEALTHYLAX) 3350 17 GM PACKET PO SCH (10:57)
[2021-05-05] MEDS: ATORVASTATIN CA 40 MG TABLET (FP) PO SCH (21:03)
[2021-05-05] MEDS: SENNOSIDES 8.6MG TABLET (FP) PO SCH (21:03)
[2021-05-06] MEDS: PYRIDOSTIGMINE BROMIDE 60 MG TABLET PO SCH ×3 (05:11→21:53)
[2021-05-06] MEDS: LEVALBUTEROL HCL 0.31 MG/3 ML VIAL.NEB IH PRN ×3 (07:20→20:10)
[2021-05-06] MEDS: ACETYLCYSTEINE 20% 200MG/ML 4 ML VIAL *FOR ORAL / INH USE ONLY NEB SCH ×4 (07:20→20:10)
[2021-05-06 08:39] LABS: BASO % 0.1 % (0-2.0); EOS % 2.1 % (0-4.5); HEMATOCRIT 33.6 % (35.4-49); HEMOGLOBIN 11.5 GM/dL (11.7-16.9); LYMPH % 9.3 % (8-40); MCH 29.3 pg (25.7-33.7); MCHC 34.1 g/dl (32.0-35.9); MEAN CELL VOLUME 85.9 fl (80-96); MEAN PLT VOLUME 7.2 fl (7.5-11.1); MONO % 7.3 % (3.8-10.2); NEUT % 81.2 % (42.8-82.8); PLATELET COUNT 427 10^3/uL (134-434); RBC 3.91 M/mm3 (4.00-5.60); RDW 15.7 % (11.9-15.9)
[2021-05-06 08:52] LABS: CALCIUM 8.1 mg/dL (8.5-10.1)
[2021-05-06 08:53] LABS: ALBUMIN 2.4 g/dl (3.4-5.0); BLOOD UREA NITROGEN 23.9 mg/dL (7-18)
[2021-05-06 08:56] LABS: CREATININE 1.1 mg/dL (0.55-1.3)
[2021-05-06 08:57] LABS: BILIRUBIN,TOTAL 0.5 mg/dL (0.2-1); TOT PROT 5.9 g/dl (6.4-8.2)
[2021-05-06] MEDS: POLYETHYLENE GLYCOL (HEALTHYLAX) 3350 17 GM PACKET PO SCH (10:00)
[2021-05-06] MEDS: amLODIPine BESYLATE 10 MG TABLET (FP) PO SCH (10:00)
[2021-05-06] MEDS: CARVEDILOL 12.5 MG TABLET (FP) PO SCH ×2 (10:00→21:53)
[2021-05-06] MEDS: ASPIRIN 81 MG CHEWABLE TABLETS PO SCH (10:00)
[2021-05-06] MEDS: PANTOPRAZOLE 40 MG TABLET PO SCH (10:00)
[2021-05-06] MEDS: TORSEMIDE 20 MG TABLET (FP) PO SCH (10:00)
[2021-05-06] MEDS ORDERED: PT OWN MED DRAWER 7, Y5N ONE ×2 (14:19→21:53)
[2021-05-06] MEDS ORDERED: ALBUTEROL SO4 0.083% IH SOL 2.5 MG/3 ML VIAL.NEB. NEB ONE (20:01)
[2021-05-06] MEDS: ATORVASTATIN CA 40 MG TABLET (FP) PO SCH (21:53)
[2021-05-06] MEDS: SENNOSIDES 8.6MG TABLET (FP) PO SCH (21:53)
[2021-05-06] MEDS: MENTHOL/PHENOL 1 EACH UD MM PRN (21:54)
[2021-05-07] MEDS: PYRIDOSTIGMINE BROMIDE 60 MG TABLET PO SCH ×3 (05:13→21:11)
[2021-05-07 07:07] LABS: BASO % 0.2 % (0-2.0); EOS % 2.2 % (0-4.5); HEMATOCRIT 34.1 % (35.4-49); HEMOGLOBIN 11.6 GM/dL (11.7-16.9); LYMPH % 11.5 % (8-40); MCH 29.5 pg (25.7-33.7); MCHC 34.1 g/dl (32.0-35.9); MEAN CELL VOLUME 86.6 fl (80-96); MEAN PLT VOLUME 7.4 fl (7.5-11.1); MONO % 9.7 % (3.8-10.2); NEUT % 76.4 % (42.8-82.8); PLATELET COUNT 368 10^3/uL (134-434); RBC 3.93 M/mm3 (4.00-5.60); RDW 15.9 % (11.9-15.9)
[2021-05-07 07:28] LABS: ALBUMIN 2.4 g/dl (3.4-5.0); BLOOD UREA NITROGEN 18.7 mg/dL (7-18); CALCIUM 8.1 mg/dL (8.5-10.1); MAGNESIUM 2.4 mg/dL (1.8-2.4)
[2021-05-07 07:30] LABS: CREATININE 1.2 mg/dL (0.55-1.3)
[2021-05-07 07:31] LABS: PHOSPHOROUS 2.8 mg/dL (2.5-4.9)
[2021-05-07 07:32] LABS: BILIRUBIN,TOTAL 0.5 mg/dL (0.2-1)
[2021-05-07] MEDS: ACETYLCYSTEINE 20% 200MG/ML 4 ML VIAL *FOR ORAL / INH USE ONLY NEB SCH ×4 (09:20→20:05)
[2021-05-07] MEDS: amLODIPine BESYLATE 10 MG TABLET (FP) PO SCH (09:27)
[2021-05-07] MEDS: TORSEMIDE 20 MG TABLET (FP) PO SCH (09:27)
[2021-05-07] MEDS: PANTOPRAZOLE 40 MG TABLET PO SCH (09:27)
[2021-05-07] MEDS: CARVEDILOL 12.5 MG TABLET (FP) PO SCH ×2 (09:27→21:12)
[2021-05-07] MEDS: ASPIRIN 81 MG CHEWABLE TABLETS PO SCH (09:27)
[2021-05-07] MEDS: POLYETHYLENE GLYCOL (HEALTHYLAX) 3350 17 GM PACKET PO SCH (09:28)
[2021-05-07] MEDS ORDERED: POTASSIUM CHLORIDE ORAL LIQUID 20 MEQ/15 ML PO SCH (10:00)
[2021-05-07] MEDS ORDERED: TORSEMIDE 20 MG TABLET (FP) PO ONE (13:41)
[2021-05-07] MEDS ORDERED: PT OWN MED DRAWER 7, Y5N ONE ×3 (13:52→22:04)
[2021-05-07] MEDS: POTASSIUM CHLORIDE ORAL LIQUID 20 MEQ/15 ML PO SCH ×2 (13:54→21:12)
[2021-05-07] MEDS: LEVALBUTEROL HCL 0.31 MG/3 ML VIAL.NEB IH SCH ×2 (15:00→20:05)
[2021-05-07] MEDS: ATORVASTATIN CA 40 MG TABLET (FP) PO SCH (21:12)
[2021-05-07] MEDS: SENNOSIDES 8.6MG TABLET (FP) PO SCH (21:12)
[2021-05-07] MEDS: guaiFENesin/D-M SUGAR-FREE/ACLHOL-FREE 118 ML BOTTLE PO PRN (22:05)
[2021-05-07] MEDS: MENTHOL/PHENOL 1 EACH UD MM PRN (22:36)
[2021-05-08] MEDS: POTASSIUM CHLORIDE ORAL LIQUID 20 MEQ/15 ML PO SCH ×3 (05:33→21:29)
[2021-05-08] MEDS: PYRIDOSTIGMINE BROMIDE 60 MG TABLET PO SCH ×3 (05:33→21:29)
[2021-05-08] MEDS: MENTHOL/PHENOL 1 EACH UD MM PRN (06:06)
[2021-05-08 07:21] LABS: BASO % 0.5 % (0-2.0); EOS % 2.5 % (0-4.5); HEMATOCRIT 33.2 % (35.4-49); HEMOGLOBIN 11.5 GM/dL (11.7-16.9); LYMPH % 11.7 % (8-40); MCH 29.8 pg (25.7-33.7); MCHC 34.8 g/dl (32.0-35.9); MEAN CELL VOLUME 85.6 fl (80-96); MEAN PLT VOLUME 6.7 fl (7.5-11.1); MONO % 10.8 % (3.8-10.2); NEUT % 74.5 % (42.8-82.8); PLATELET COUNT 284 10^3/uL (134-434); RBC 3.88 M/mm3 (4.00-5.60); RDW 16.2 % (11.9-15.9); WHITE BLOOD COUNT 10.1 K/mm3 (4.0-10.0)
[2021-05-08 07:45] LABS: CALCIUM 8.4 mg/dL (8.5-10.1)
[2021-05-08 07:46] LABS: ALBUMIN 2.3 g/dl (3.4-5.0); BLOOD UREA NITROGEN 17.3 mg/dL (7-18); MAGNESIUM 1.8 mg/dL (1.8-2.4)
[2021-05-08 07:48] LABS: PHOSPHOROUS 2.5 mg/dL (2.5-4.9)
[2021-05-08 07:49] LABS: CREATININE 1.2 mg/dL (0.55-1.3)
[2021-05-08 07:50] LABS: BILIRUBIN,TOTAL 0.5 mg/dL (0.2-1); TOT PROT 5.9 g/dl (6.4-8.2)
[2021-05-08] MEDS: ACETYLCYSTEINE 20% 200MG/ML 4 ML VIAL *FOR ORAL / INH USE ONLY NEB SCH ×4 (08:25→20:40)
[2021-05-08] MEDS: LEVALBUTEROL HCL 0.31 MG/3 ML VIAL.NEB IH SCH ×3 (08:25→20:40)
[2021-05-08] MEDS: TORSEMIDE 20 MG TABLET (FP) PO SCH (09:23)
[2021-05-08] MEDS: ASPIRIN 81 MG CHEWABLE TABLETS PO SCH (09:23)
[2021-05-08] MEDS: CARVEDILOL 12.5 MG TABLET (FP) PO SCH ×2 (09:23→21:28)
[2021-05-08] MEDS: PANTOPRAZOLE 40 MG TABLET PO SCH (09:24)
[2021-05-08] MEDS: amLODIPine BESYLATE 10 MG TABLET (FP) PO SCH (09:24)
[2021-05-08] MEDS: POLYETHYLENE GLYCOL (HEALTHYLAX) 3350 17 GM PACKET PO SCH (09:24)
[2021-05-08] MEDS ORDERED: PT OWN MED DRAWER 7, Y5N ONE (21:16)
[2021-05-08] MEDS: ATORVASTATIN CA 40 MG TABLET (FP) PO SCH (21:28)
[2021-05-08] MEDS: SENNOSIDES 8.6MG TABLET (FP) PO SCH (21:29)
[2021-05-09] MEDS: POTASSIUM CHLORIDE ORAL LIQUID 20 MEQ/15 ML PO SCH ×3 (05:50→22:20)
[2021-05-09] MEDS: PYRIDOSTIGMINE BROMIDE 60 MG TABLET PO SCH ×3 (05:50→22:19)
[2021-05-09] MEDS: ACETYLCYSTEINE 20% 200MG/ML 4 ML VIAL *FOR ORAL / INH USE ONLY NEB SCH ×3 (08:23→20:20)
[2021-05-09] MEDS: LEVALBUTEROL HCL 0.31 MG/3 ML VIAL.NEB IH SCH ×3 (08:23→20:20)
[2021-05-09] MEDS: POLYETHYLENE GLYCOL (HEALTHYLAX) 3350 17 GM PACKET PO SCH (09:24)
[2021-05-09] MEDS: amLODIPine BESYLATE 10 MG TABLET (FP) PO SCH (09:24)
[2021-05-09] MEDS: ASPIRIN 81 MG CHEWABLE TABLETS PO SCH (09:24)
[2021-05-09] MEDS: TORSEMIDE 20 MG TABLET (FP) PO SCH ×2 (09:25→16:15)
[2021-05-09] MEDS: PANTOPRAZOLE 40 MG TABLET PO SCH (09:25)
[2021-05-09] MEDS: CARVEDILOL 12.5 MG TABLET (FP) PO SCH ×2 (09:25→22:19)
[2021-05-09] MEDS ORDERED: PT OWN MED DRAWER 7, Y5N ONE (13:03)
[2021-05-09] MEDS: ATORVASTATIN CA 40 MG TABLET (FP) PO SCH (22:19)
[2021-05-09] MEDS: SENNOSIDES 8.6MG TABLET (FP) PO SCH (22:19)
[2021-05-10] MEDS: TORSEMIDE 20 MG TABLET (FP) PO SCH (06:48)
[2021-05-10] MEDS: POTASSIUM CHLORIDE ORAL LIQUID 20 MEQ/15 ML PO SCH (06:48)
[2021-05-10] MEDS: PYRIDOSTIGMINE BROMIDE 60 MG TABLET PO SCH ×2 (06:48→14:12)
[2021-05-10] MEDS: ACETYLCYSTEINE 20% 200MG/ML 4 ML VIAL *FOR ORAL / INH USE ONLY NEB SCH ×3 (07:20→15:06)
[2021-05-10] MEDS: LEVALBUTEROL HCL 0.31 MG/3 ML VIAL.NEB IH SCH ×2 (07:20→14:44)
[2021-05-10 07:25] LABS: CALCIUM 8.9 mg/dL (8.5-10.1)
[2021-05-10 07:26] LABS: BLOOD UREA NITROGEN 25.8 mg/dL (7-18)
[2021-05-10 07:29] LABS: CREATININE 1.4 mg/dL (0.55-1.3)
[2021-05-10] MEDS: ACETAMINOPHEN 325 MG TABLET (FP) PO PRN (07:51)
[2021-05-10] MEDS: CARVEDILOL 12.5 MG TABLET (FP) PO SCH (09:16)
[2021-05-10] MEDS: amLODIPine BESYLATE 10 MG TABLET (FP) PO SCH (09:16)
[2021-05-10] MEDS: ASPIRIN 81 MG CHEWABLE TABLETS PO SCH (09:16)
[2021-05-10] MEDS: POLYETHYLENE GLYCOL (HEALTHYLAX) 3350 17 GM PACKET PO SCH (09:16)
[2021-05-10] MEDS: PANTOPRAZOLE 40 MG TABLET PO SCH (09:16)
[2021-05-10] MEDS ORDERED: PT OWN MED DRAWER 7, Y5N ONE (14:11)
[2021-05-10 15:16] VITALS: BP 110/59; PULSE 62; TEMP 98
[2021-05-11] MEDS ORDERED: POTASSIUM CHLORIDE ORAL LIQUID 20 MEQ/15 ML PO SCH (10:00)
[2021-05-11] MEDS ORDERED: TORSEMIDE 20 MG TABLET (FP) PO SCH (10:00)
== END 2021-05-10 16:56 | disposition home health service (06) | DRG 602 ==
LOC: JER 15:40 → JERBED 19:49 → J4W 04-18 02:25
PROVIDERS: ADMIT Internal Medicine
DX: L03.113 Cellulitis of right upper limb (principal); I50.33 Acute on chronic diastolic (congestive) heart failure; J18.9 Pneumonia, unspecified organism; N17.9 Acute kidney failure, unspecified; G91.2 (Idiopathic) normal pressure hydrocephalus; J44.1 Chronic obstructive pulmonary disease with (acute) exacerbation; L03.115 Cellulitis of right lower limb; I13.0 Hypertensive heart and chronic kidney disease with heart failure and stage 1 through stage 4 chronic kidney disease, or unspecified chronic kidney disease; E78.5 Hyperlipidemia, unspecified; S51.011A Laceration without foreign body of right elbow, initial encounter; R26.9 Unspecified abnormalities of gait and mobility; I25.10 Atherosclerotic heart disease of native coronary artery without angina pectoris; I10 Essential (primary) hypertension; E87.6 Hypokalemia; N18.9 Chronic kidney disease, unspecified; I11.0 Hypertensive heart disease with heart failure; H61.20 Impacted cerumen, unspecified ear; K76.89 Other specified diseases of liver; J98.01 Acute bronchospasm; R29.6 Repeated falls; W18.39XA Other fall on same level, initial encounter; I48.91 Unspecified atrial fibrillation; D72.829 Elevated white blood cell count, unspecified; E66.9 Obesity, unspecified; Z68.26 Body mass index [BMI] 26.0-26.9, adult; E87.70 Fluid overload, unspecified; Y92.098 Other place in other non-institutional residence as the place of occurrence of the external cause; Z95.5 Presence of coronary angioplasty implant and graft
CPT/HCPCS: 36415; 70450-TC; 71045-TC-FY; 71250-TC; 73060-TC-RT-FY; 73070-TC-RT-FY; 73090-TC-RT-FY; 73502-TC-LT-FY; 73502-TC-RT-FY; 73562-TC-LT-FY; 76775-TC; 80048; 80053; 81003; 82272; 82436; 82550; 82570; 82607; 82962; 83735; 83880; 83930; 83935; 84100; 84133; 84300; 84436; 84443; 84550; 85025; 85027; 86780; 87040; 87070; 87086; 87186; 87205; 90686; 93005; 93010; 93306-TC; 93880-TC; 94010; 94640; 97116-GP; 97161-GP; 99285-25; C9803; G0008; J0131; J1644; U0003; U0005

== ENCOUNTER 2022-04-16 15:11 | Emergency (ER) | payer OTHER ==
[2022-04-16 15:16] VITALS: TEMP 98.7; BMI 27.2
[2022-04-16] MEDS ORDERED: VANCOMYCIN 1 GM in D5W (PRE-DOCKED) 1,000 MG/250 ML IVPB ONE (15:49)
[2022-04-16] MEDS ORDERED: CEFTRIAXONE 1,000 MG in DEXTROSE 5%-WATER - 50 ML IVPB ONE (16:00)
[2022-04-16] MEDS ORDERED: CEFTRIAXONE 2 GM/100 ML BAG IVPB ONE (16:14)
[2022-04-16 17:05] LABS: BASO % 0.4 % (0-2.0); HEMATOCRIT 43.1 % (35.4-49); HEMOGLOBIN 14.4 GM/dL (11.7-16.9); LYMPH % 10.1 % (8-40); MCH 29.9 pg (25.7-33.7); MCHC 33.4 g/dl (32.0-35.9); MEAN CELL VOLUME 89.5 fl (80-96); MEAN PLT VOLUME 7.2 fl (7.5-11.1); NEUT % 77.5 % (42.8-82.8); PLATELET COUNT 175 10^3/uL (134-434); RBC 4.81 M/mm3 (4.00-5.60); RDW 15.7 % (11.9-15.9); WHITE BLOOD COUNT 10.3 K/mm3 (4.0-10.0)
[2022-04-16 17:26] LABS: CALCIUM 9.3 mg/dL (8.5-10.1)
[2022-04-16 17:27] LABS: ALBUMIN 3.7 g/dl (3.4-5.0); BLOOD UREA NITROGEN 29.1 mg/dL (7-18)
[2022-04-16 17:31] LABS: TOT PROT 7.1 g/dl (6.4-8.2)
[2022-04-16 17:32] LABS: BILIRUBIN,TOTAL 0.8 mg/dL (0.2-1)
[2022-04-16] MEDS ORDERED: SODIUM CHLORIDE 0.9% 500 ML INFUS.BAG IV ONE (18:01)
[2022-04-16] MEDS ORDERED: DALBAVANCIN HCL 1,125 MG in DEXTROSE 5%-WATER - 500 ML IVPB ONE (18:30)
[2022-04-16] MEDS ORDERED: DALBAVANCIN HCL 500 MG VIAL (RESTRICTED TO ID ONLY) IVPB ONE ×2 (18:44→18:45)
[2022-04-16] MEDS ORDERED: WATER IVPB ONE (18:47)
[2022-04-16] MEDS ORDERED: DEXTROSE 5% IVPB ONE (18:47)
[2022-04-16] MEDS ORDERED: DALBAVANCIN HCL IVPB ONE (18:47)
[2022-04-16 20:42] LABS: CALCIUM 8.5 mg/dL (8.5-10.1)
[2022-04-16 20:43] LABS: BLOOD UREA NITROGEN 29.4 mg/dL (7-18)
[2022-04-16 20:47] LABS: CREATININE 1.9 mg/dL (0.55-1.3)
[2022-04-16 21:32] VITALS: BP 128/78; PULSE 66; RESP 18
== END 2022-04-16 21:32 | disposition home or self-care (01) ==
LOC: JER 15:11
DX: L03.115 Cellulitis of right lower limb (principal)
CPT/HCPCS: 0241U-QW; 36415; 80048; 80053; 85025; 87040; 93005; 93010; 93971-TC; 99285-25; J0875

== ENCOUNTER 2023-09-04 00:08 | Inpatient (IN) | payer OTHER ==
[2023-09-04 00:15] VITALS: BMI 27.9
[2023-09-04 01:41] LABS: BASO % 0.8 % (0-2.0); EOS % 3.4 % (0-4.5); HEMATOCRIT 44.7 % (35.4-49); HEMOGLOBIN 15.2 GM/dL (11.7-16.9); MCH 29.5 pg (25.7-33.7); MEAN CELL VOLUME 86.8 fl (80-96); MEAN PLT VOLUME 6.4 fl (7.5-11.1); MONO % 11.9 % (3.8-10.2); NEUT % 70.9 % (42.8-82.8); PLATELET COUNT 207 10^3/uL (134-434); RBC 5.15 M/mm3 (4.00-5.60); RDW 14.9 % (11.9-15.9); WHITE BLOOD COUNT 8.1 K/mm3 (4.0-10.0)
[2023-09-04 01:48] LABS: INR 1.01 (0.83-1.09); PROTHROMBIN TIME (PATIENT) 11.7 SEC (9.7-13.0)
[2023-09-04 01:50] LABS: ACTIVATED PTT 33.9 SECONDS (25.2-36.5)
[2023-09-04 02:06] LABS: POTASSIUM 3.6 mmol/L (3.5-5.1)
[2023-09-04 02:08] LABS: CALCIUM 8.4 mg/dL (8.5-10.1)
[2023-09-04 02:09] LABS: ALBUMIN 3.8 g/dl (3.4-5.0); BLOOD UREA NITROGEN 17.6 mg/dL (7-18)
[2023-09-04 02:12] LABS: CREATININE 1.6 mg/dL (0.55-1.3)
[2023-09-04 02:13] LABS: BILIRUBIN,TOTAL 0.7 mg/dL (0.2-1); TOT PROT 7.2 g/dl (6.4-8.2)
[2023-09-04 08:21] LABS: EPI CELLS 7 /uL (0-25.1); HYALINE CASTS 0 /uL (0-3.1); URINE APPEARANCE CLEAR; URINE BACTERIA 4 /uL (0-1359); URINE BILIRUBIN NEGATIVE (NEGATIVE); URINE COLOR YELLOW; URINE GLUCOSE (UA) NEGATIVE (NEGATIVE); URINE KETONE NEGATIVE (NEGATIVE); URINE LEUK ESTERASE NEGATIVE (NEGATIVE); URINE NITRITE NEGATIVE (NEGATIVE); URINE PROTEIN 1+ (NEGATIVE); URINE RBC 19 /uL (0-23.9); URINE WBC 8 /uL (0-25.8)
[2023-09-04] MEDS: ASPIRIN COATED 81 MG TABLET.EC PO SCH (09:18)
[2023-09-04] MEDS: PYRIDOSTIGMINE BROMIDE 60 MG TABLET PO SCH (09:18)
[2023-09-04] MEDS: CARVEDILOL 6.25 MG TABLET (FP) PO SCH (09:18)
[2023-09-04] MEDS ORDERED: CARVEDILOL 6.25 MG TABLET (FP) ONE (10:10)
[2023-09-04 10:12] VITALS: PULSE 51; RESP 21; TEMP 98.1
[2023-09-04 10:29] VITALS: BP 168/71
[2023-09-04] MEDS ORDERED: amLODIPine BESYLATE 5 MG TABLET (FP) PO ONE (13:30)
[2023-09-04] MEDS ORDERED: ATORVASTATIN CA 20 MG TABLET (FP) PO SCH (22:00)
== END 2023-09-04 10:45 | disposition short-term general hospital (02) | DRG 312 ==
LOC: JER 00:08 → JERBED 03:41
PROVIDERS: ADMIT Internal Medicine; ATTEND Internal Medicine
DX: R55 Syncope and collapse (principal); I13.0 Hypertensive heart and chronic kidney disease with heart failure and stage 1 through stage 4 chronic kidney disease, or unspecified chronic kidney disease; I50.22 Chronic systolic (congestive) heart failure; R00.1 Bradycardia, unspecified; J44.9 Chronic obstructive pulmonary disease, unspecified; I25.10 Atherosclerotic heart disease of native coronary artery without angina pectoris; I48.91 Unspecified atrial fibrillation; E78.00 Pure hypercholesterolemia, unspecified; R29.6 Repeated falls; E78.5 Hyperlipidemia, unspecified; N18.9 Chronic kidney disease, unspecified; Z95.5 Presence of coronary angioplasty implant and graft; Z95.1 Presence of aortocoronary bypass graft
CPT/HCPCS: 0241U-QW; 36415; 70450-TC; 71046-TC-FY; 72125-TC; 80053; 81003; 82550; 82553; 84484; 85025; 85610; 85730; 93005; 93010; 99285-25

== ENCOUNTER 2023-11-08 20:31 | Inpatient (IN) | payer OTHER ==
[2023-11-08] MEDS: MAGNESIUM SULFATE IN WATER 2 GM/50 ML IVPB IVPB ONE (20:57)
[2023-11-08] MEDS ORDERED: ALBUTEROL SO4 2.5/IPRATROPIUM 0.5 INH SOL 3 ML VIAL.NEB. NEB ONE (21:02)
[2023-11-08] MEDS: ALBUTEROL SO4 2.5/IPRATROPIUM 0.5 INH SOL 3 ML VIAL.NEB. NEB SCH (21:02)
[2023-11-08 22:19] LABS: BASO % 0.2 % (0-2.0); EOS % 0.5 % (0-4.5); HEMATOCRIT 39.4 % (35.4-49); HEMOGLOBIN 13.7 GM/dL (11.7-16.9); MCH 29.9 pg (25.7-33.7); MCHC 34.7 g/dl (32.0-35.9); MEAN CELL VOLUME 86.1 fl (80-96); MEAN PLT VOLUME 6.7 fl (7.5-11.1); MONO % 6.5 % (3.8-10.2); NEUT % 86.8 % (42.8-82.8); PLATELET COUNT 231 10^3/uL (134-434); RBC 4.57 M/mm3 (4.00-5.60); RDW 14.8 % (11.9-15.9); VENOUS BASE EXCESS -0.1 mmol/L (-2-2); VENOUS O2 SATURATION 78.5 % (70-80); VENOUS PCO2 43.3 mmHg (38-52); VENOUS PH 7.383 (7.310-7.410); WHITE BLOOD COUNT 6.9 K/mm3 (4.0-10.0)
[2023-11-08 22:26] LABS: INR 1.03 (0.83-1.09); PROTHROMBIN TIME (PATIENT) 11.6 SEC (9.7-13.0)
[2023-11-08 22:28] LABS: ACTIVATED PTT 33.1 SECONDS (25.2-36.5)
[2023-11-08 22:34] LABS: POTASSIUM 3.9 mmol/L (3.5-5.1)
[2023-11-08 22:36] LABS: CALCIUM 8.2 mg/dL (8.5-10.1)
[2023-11-08 22:37] LABS: ALBUMIN 2.9 g/dl (3.4-5.0); BLOOD UREA NITROGEN 19.7 mg/dL (7-18)
[2023-11-08 22:40] LABS: CREATININE 1.1 mg/dL (0.55-1.3)
[2023-11-08 22:41] LABS: BILIRUBIN,TOTAL 0.7 mg/dL (0.2-1); TOT PROT 6.2 g/dl (6.4-8.2)
[2023-11-08 22:45] LABS: N-TERMINAL BNP 2777.1 pg/ml (5-450)
[2023-11-08] MEDS ORDERED: methylPREDNISolone NA SUCC 125 MG/2 ML VIAL ONE (23:27)
[2023-11-08] MEDS ORDERED: AZITHROMYCIN IVPB 500 MG/250 ML BAG IVPB ONE (23:28)
[2023-11-08] MEDS ORDERED: FUROSEMIDE 40 MG/4 ML INJECTABLE VIAL ONE (23:28)
[2023-11-08] MEDS ORDERED: CEFTRIAXONE 1 GM/50 ML BAG ONE (23:28)
[2023-11-08] MEDS: AZITHROMYCIN IVPB 500 MG in DEXTROSE 5%-WATER - 250 ML IVPB ONE (23:38)
[2023-11-08] MEDS: FUROSEMIDE 40 MG/4 ML INJECTABLE VIAL IVPUSH ONE (23:38)
[2023-11-09] MEDS: methylPREDNISolone NA SUCC 125 MG/2 ML VIAL IVPUSH ONE (00:32)
[2023-11-09 00:39] LABS: EPI CELLS 10 /uL (0-25.1); HYALINE CASTS 1 /uL (0-3.1); URINE APPEARANCE CLEAR; URINE BACTERIA 5 /uL (0-1359); URINE BILIRUBIN NEGATIVE (NEGATIVE); URINE COLOR YELLOW; URINE GLUCOSE (UA) NEGATIVE (NEGATIVE); URINE KETONE TRACE (NEGATIVE); URINE LEUK ESTERASE NEGATIVE (NEGATIVE); URINE NITRITE NEGATIVE (NEGATIVE); URINE PROTEIN 2+ (NEGATIVE); URINE RBC 30 /uL (0-23.9); URINE WBC 9 /uL (0-25.8)
[2023-11-09] MEDS ORDERED: DEXAMETHASONE SOD PHOSPHATE 10 MG/1 ML VIAL IVPUSH SCH ×2 (01:51→10:00)
[2023-11-09] MEDS: REMDESIVIR 200 MG in SODIUM CHLORIDE 250 ML IVPB ONE (03:10)
[2023-11-09] MEDS ORDERED: HEPARIN NA (PORCINE) 5,000 UNITS/ML 1ML VIAL ONE ×2 (06:15→14:02)
[2023-11-09] MEDS ORDERED: FUROSEMIDE 40 MG/4 ML INJECTABLE VIAL ONE ×2 (06:16→14:02)
[2023-11-09] MEDS: FUROSEMIDE 40 MG/4 ML INJECTABLE VIAL IVPUSH SCH (06:26)
[2023-11-09] MEDS: HEPARIN NA (PORCINE) 5,000 UNITS/ML 1ML VIAL SQ SCH (06:26)
[2023-11-09] MEDS: PYRIDOSTIGMINE BROMIDE 60 MG TABLET PO SCH (06:31)
[2023-11-09 06:36] LABS: POTASSIUM 3.5 mmol/L (3.5-5.1)
[2023-11-09 06:41] LABS: ALBUMIN 2.9 g/dl (3.4-5.0); CALCIUM 7.9 mg/dL (8.5-10.1)
[2023-11-09 06:42] LABS: BLOOD UREA NITROGEN 20.3 mg/dL (7-18); MAGNESIUM 2.2 mg/dL (1.8-2.4)
[2023-11-09 06:44] LABS: CREATININE 1.2 mg/dL (0.55-1.3); PHOSPHOROUS 3.6 mg/dL (2.5-4.9)
[2023-11-09 06:45] LABS: BASO % 0.2 % (0-2.0); EOS % 0.1 % (0-4.5); HEMATOCRIT 40.5 % (35.4-49); HEMOGLOBIN 13.5 GM/dL (11.7-16.9); LYMPH % 6.1 % (8-40); MCH 28.8 pg (25.7-33.7); MCHC 33.2 g/dl (32.0-35.9); MEAN CELL VOLUME 86.8 fl (80-96); MEAN PLT VOLUME 6.8 fl (7.5-11.1); MONO % 2.3 % (3.8-10.2); NEUT % 91.3 % (42.8-82.8); PLATELET COUNT 234 10^3/uL (134-434); RBC 4.67 M/mm3 (4.00-5.60); RDW 14.6 % (11.9-15.9); WHITE BLOOD COUNT 5.6 K/mm3 (4.0-10.0)
[2023-11-09 06:46] LABS: BILIRUBIN,TOTAL 0.7 mg/dL (0.2-1); TOT PROT 6.4 g/dl (6.4-8.2)
[2023-11-09 09:12] LABS: ANISOCYTOSIS 2+; MACROCYTOSIS 0
[2023-11-09] MEDS ORDERED: ASPIRIN COATED 81 MG TABLET.EC ONE (10:00)
[2023-11-09] MEDS ORDERED: POTASSIUM CHLORIDE TABS 20 MEQ TABLET.ER (FP) PO ONE (10:00)
[2023-11-09] MEDS ORDERED: CARVEDILOL 3.125 MG TABLET (FP) ONE (10:00)
[2023-11-09] MEDS ORDERED: DEXAMETHASONE SOD PHOSPHATE 10 MG/1 ML VIAL ONE (10:01)
[2023-11-09] MEDS: ASPIRIN COATED 81 MG TABLET.EC PO SCH (10:11)
[2023-11-09] MEDS: DEXAMETHASONE SOD PHOSPHATE 10 MG/1 ML VIAL IVPUSH SCH (10:11)
[2023-11-09] MEDS: CARVEDILOL 3.125 MG TABLET (FP) PO SCH (10:11)
[2023-11-09] MEDS: POTASSIUM CHLORIDE TABS 20 MEQ TABLET.ER (FP) PO SCH (10:11)
[2023-11-09] MEDS: ATORVASTATIN CA 20 MG TABLET (FP) PO SCH (22:00)
[2023-11-10] MEDS ORDERED: HALOPERIDOL LACTATE 5 MG/ML IM PRN (03:46)
[2023-11-10] MEDS: HALOPERIDOL LACTATE 5 MG/ML IM ONE (03:53)
[2023-11-10 07:35] LABS: BASO % 0.1 % (0-2.0); HEMATOCRIT 40.8 % (35.4-49); HEMOGLOBIN 13.9 GM/dL (11.7-16.9); LYMPH % 3.9 % (8-40); MCH 29.3 pg (25.7-33.7); MCHC 34.2 g/dl (32.0-35.9); MEAN CELL VOLUME 85.8 fl (80-96); MONO % 7.2 % (3.8-10.2); NEUT % 88.8 % (42.8-82.8); PLATELET COUNT 299 10^3/uL (134-434); RBC 4.75 M/mm3 (4.00-5.60); RDW 14.6 % (11.9-15.9); WHITE BLOOD COUNT 13.9 K/mm3 (4.0-10.0)
[2023-11-10 07:38] LABS: POTASSIUM 3.3 mmol/L (3.5-5.1)
[2023-11-10 07:58] LABS: ALBUMIN 2.9 g/dl (3.4-5.0); CALCIUM 8.8 mg/dL (8.5-10.1)
[2023-11-10 07:59] LABS: BLOOD UREA NITROGEN 41.1 mg/dL (7-18); MAGNESIUM 2.5 mg/dL (1.8-2.4)
[2023-11-10 08:01] LABS: CREATININE 1.6 mg/dL (0.55-1.3)
[2023-11-10 08:02] LABS: PHOSPHOROUS 3.3 mg/dL (2.5-4.9)
[2023-11-10 08:03] LABS: BILIRUBIN,TOTAL 0.6 mg/dL (0.2-1); TOT PROT 6.6 g/dl (6.4-8.2)
[2023-11-10] MEDS ORDERED: REMDESIVIR 100 MG in SODIUM CHLORIDE 250 ML IVPB SCH (10:00)
[2023-11-10] MEDS: REMDESIVIR 100 MG in SODIUM CHLORIDE 250 ML IVPB SCH (10:54)
[2023-11-10] MEDS: FUROSEMIDE 40 MG/4 ML INJECTABLE VIAL IVPUSH ONE ×2 (11:46→17:26)
[2023-11-10] MEDS ORDERED: hydrOXYzine HCL 100 MG/2 ML VIAL IM PRN (16:04)
[2023-11-10] MEDS: hydrOXYzine HCL 50 MG/ML VIAL IM PRN (17:21)
[2023-11-10] MEDS: POTASSIUM CHLORIDE ORAL LIQUID 20 MEQ/15 ML PO SCH (22:06)
[2023-11-11 08:41] LABS: BASO % 0.1 % (0-2.0); HEMATOCRIT 41.5 % (35.4-49); HEMOGLOBIN 13.7 GM/dL (11.7-16.9); LYMPH % 4.7 % (8-40); MCH 28.6 pg (25.7-33.7); MCHC 33.1 g/dl (32.0-35.9); MEAN CELL VOLUME 86.5 fl (80-96); MEAN PLT VOLUME 6.8 fl (7.5-11.1); MONO % 7.2 % (3.8-10.2); PLATELET COUNT 328 10^3/uL (134-434); RBC 4.79 M/mm3 (4.00-5.60); RDW 14.5 % (11.9-15.9); WHITE BLOOD COUNT 12.8 K/mm3 (4.0-10.0)
[2023-11-11 08:58] LABS: POTASSIUM 3.4 mmol/L (3.5-5.1)
[2023-11-11 09:07] LABS: BLOOD UREA NITROGEN 42.3 mg/dL (7-18)
[2023-11-11 09:08] LABS: ALBUMIN 2.8 g/dl (3.4-5.0); CALCIUM 8.1 mg/dL (8.5-10.1); MAGNESIUM 2.3 mg/dL (1.8-2.4)
[2023-11-11 09:10] LABS: PHOSPHOROUS 3.9 mg/dL (2.5-4.9)
[2023-11-11 09:11] LABS: CREATININE 1.3 mg/dL (0.55-1.3)
[2023-11-11 09:12] LABS: BILIRUBIN,TOTAL 0.7 mg/dL (0.2-1)
[2023-11-11 09:13] LABS: TOT PROT 5.9 g/dl (6.4-8.2)
[2023-11-11] MEDS: FUROSEMIDE 40 MG/4 ML INJECTABLE VIAL IVPUSH ONE (15:32)
[2023-11-12 07:49] LABS: HEMATOCRIT 41.3 % (35.4-49); HEMOGLOBIN 13.8 GM/dL (11.7-16.9); LYMPH % 6.2 % (8-40); MCH 29.2 pg (25.7-33.7); MCHC 33.4 g/dl (32.0-35.9); MEAN CELL VOLUME 87.2 fl (80-96); MEAN PLT VOLUME 6.9 fl (7.5-11.1); MONO % 8.6 % (3.8-10.2); NEUT % 85.2 % (42.8-82.8); PLATELET COUNT 308 10^3/uL (134-434); RBC 4.74 M/mm3 (4.00-5.60); RDW 14.8 % (11.9-15.9); WHITE BLOOD COUNT 12.5 K/mm3 (4.0-10.0)
[2023-11-12 08:03] LABS: POTASSIUM 3.5 mmol/L (3.5-5.1)
[2023-11-12 08:11] LABS: ALBUMIN 2.6 g/dl (3.4-5.0); BLOOD UREA NITROGEN 42.7 mg/dL (7-18); MAGNESIUM 2.5 mg/dL (1.8-2.4)
[2023-11-12 08:14] LABS: CREATININE 1.4 mg/dL (0.55-1.3); PHOSPHOROUS 3.2 mg/dL (2.5-4.9)
[2023-11-12 08:15] LABS: BILIRUBIN,TOTAL 0.6 mg/dL (0.2-1); TOT PROT 5.7 g/dl (6.4-8.2)
[2023-11-12] MEDS: ENOXAPARIN NA (PORCINE) 40 MG/0.4 ML DISP.SYRIN SQ SCH (10:20)
[2023-11-13 08:12] LABS: BASO % 0.1 % (0-2.0); EOS % 0.2 % (0-4.5); HEMATOCRIT 42.2 % (35.4-49); HEMOGLOBIN 14.2 GM/dL (11.7-16.9); MCH 28.9 pg (25.7-33.7); MCHC 33.6 g/dl (32.0-35.9); MEAN CELL VOLUME 86.2 fl (80-96); MEAN PLT VOLUME 6.5 fl (7.5-11.1); MONO % 9.3 % (3.8-10.2); NEUT % 83.4 % (42.8-82.8); PLATELET COUNT 347 10^3/uL (134-434); RDW 14.9 % (11.9-15.9); WHITE BLOOD COUNT 12.6 K/mm3 (4.0-10.0)
[2023-11-13 08:37] LABS: ALBUMIN 2.6 g/dl (3.4-5.0); CALCIUM 7.8 mg/dL (8.5-10.1)
[2023-11-13 08:39] LABS: MAGNESIUM 2.5 mg/dL (1.8-2.4)
[2023-11-13 08:40] LABS: BLOOD UREA NITROGEN 30.8 mg/dL (7-18); CREATININE 1.2 mg/dL (0.55-1.3); PHOSPHOROUS 3.3 mg/dL (2.5-4.9)
[2023-11-13 08:42] LABS: BILIRUBIN,TOTAL 0.6 mg/dL (0.2-1); TOT PROT 5.8 g/dl (6.4-8.2)
[2023-11-13] MEDS ORDERED: PIPERACILLIN/TAZOB 3.375 GM 3.375 GM in DEXTROSE 5%-WATER - 50 ML IVPB SCH (15:15)
[2023-11-13] MEDS: PIPERACILLIN/TAZOB 3.375 GM 3.375 GM in DEXTROSE 5%-WATER - 50 ML IVPB SCH (15:37)
[2023-11-13] MEDS: FUROSEMIDE 40 MG/4 ML INJECTABLE VIAL IVPUSH SCH (16:32)
[2023-11-13] MEDS: CARVEDILOL 6.25 MG TABLET (FP) PO SCH (21:25)
[2023-11-13 23:48] LABS: N-TERMINAL BNP 1313.1 pg/ml (5-450)
[2023-11-14] MEDS ORDERED: ALBUTEROL SO4 HFA INHALER IH PRN (11:38)
[2023-11-14] MEDS: PIPERACILLIN/TAZOB 3.375 GM 3.375 GM in DEXTROSE 5%-WATER - 50 ML IVPB SCH (21:46)
[2023-11-15 08:01] LABS: BASO % 0.1 % (0-2.0); EOS % 0.1 % (0-4.5); HEMOGLOBIN 14.6 GM/dL (11.7-16.9); LYMPH % 4.8 % (8-40); MCH 29.1 pg (25.7-33.7); MCHC 33.2 g/dl (32.0-35.9); MEAN CELL VOLUME 87.6 fl (80-96); MEAN PLT VOLUME 7.2 fl (7.5-11.1); MONO % 8.3 % (3.8-10.2); NEUT % 86.7 % (42.8-82.8); PLATELET COUNT 356 10^3/uL (134-434); RBC 5.02 M/mm3 (4.00-5.60); RDW 15.1 % (11.9-15.9); WHITE BLOOD COUNT 14.9 K/mm3 (4.0-10.0)
[2023-11-15 08:17] LABS: POTASSIUM 4.3 mmol/L (3.5-5.1)
[2023-11-15 08:19] LABS: ALBUMIN 2.5 g/dl (3.4-5.0); BLOOD UREA NITROGEN 38.4 mg/dL (7-18); CALCIUM 8.1 mg/dL (8.5-10.1)
[2023-11-15 08:22] LABS: CREATININE 1.4 mg/dL (0.55-1.3)
[2023-11-15 08:24] LABS: BILIRUBIN,TOTAL 0.7 mg/dL (0.2-1); TOT PROT 5.8 g/dl (6.4-8.2)
[2023-11-15] MEDS: POTASSIUM CHLORIDE ORAL LIQUID 20 MEQ/15 ML PO SCH (10:48)
[2023-11-16 08:58] LABS: BASO % 0.2 % (0-2.0); EOS % 0.1 % (0-4.5); HEMOGLOBIN 15.5 GM/dL (11.7-16.9); LYMPH % 4.3 % (8-40); MCHC 33.6 g/dl (32.0-35.9); MEAN CELL VOLUME 86.2 fl (80-96); MEAN PLT VOLUME 7.1 fl (7.5-11.1); MONO % 7.8 % (3.8-10.2); NEUT % 87.6 % (42.8-82.8); PLATELET COUNT 428 10^3/uL (134-434); RBC 5.34 M/mm3 (4.00-5.60); RDW 15.6 % (11.9-15.9); WHITE BLOOD COUNT 16.4 K/mm3 (4.0-10.0)
[2023-11-16 09:20] LABS: POTASSIUM 4.4 mmol/L (3.5-5.1)
[2023-11-16 09:25] LABS: ALBUMIN 2.5 g/dl (3.4-5.0); BLOOD UREA NITROGEN 39.3 mg/dL (7-18); CALCIUM 8.2 mg/dL (8.5-10.1)
[2023-11-16 09:28] LABS: CREATININE 1.5 mg/dL (0.55-1.3)
[2023-11-16 09:30] LABS: BILIRUBIN,TOTAL 0.7 mg/dL (0.2-1)
[2023-11-16] MEDS: INSULIN ASPART SLIDING SCALE (NOVOLOG) 1 VIAL SQ SCH (18:34)
[2023-11-17 08:26] LABS: HEMATOCRIT 46.9 % (35.4-49); HEMOGLOBIN 15.1 GM/dL (11.7-16.9); MCH 28.3 pg (25.7-33.7); MCHC 32.1 g/dl (32.0-35.9); MEAN CELL VOLUME 88.1 fl (80-96); MEAN PLT VOLUME 7.3 fl (7.5-11.1); PLATELET COUNT 406 10^3/uL (134-434); RBC 5.32 M/mm3 (4.00-5.60); RDW 14.8 % (11.9-15.9); WHITE BLOOD COUNT 16.7 K/mm3 (4.0-10.0)
[2023-11-17 08:30] LABS: POTASSIUM 4.5 mmol/L (3.5-5.1)
[2023-11-17 08:46] LABS: CALCIUM 7.8 mg/dL (8.5-10.1)
[2023-11-17 08:47] LABS: ALBUMIN 2.4 g/dl (3.4-5.0); BLOOD UREA NITROGEN 40.4 mg/dL (7-18); MAGNESIUM 2.7 mg/dL (1.8-2.4)
[2023-11-17 08:50] LABS: CREATININE 1.4 mg/dL (0.55-1.3); PHOSPHOROUS 4.1 mg/dL (2.5-4.9)
[2023-11-17 08:52] LABS: BILIRUBIN,TOTAL 0.8 mg/dL (0.2-1); TOT PROT 5.9 g/dl (6.4-8.2)
[2023-11-18 06:34] LABS: BASO % 0.2 % (0-2.0); EOS % 0.2 % (0-4.5); HEMATOCRIT 45.6 % (35.4-49); HEMOGLOBIN 15.7 GM/dL (11.7-16.9); LYMPH % 4.6 % (8-40); MCH 29.7 pg (25.7-33.7); MCHC 34.5 g/dl (32.0-35.9); MEAN CELL VOLUME 86.1 fl (80-96); MEAN PLT VOLUME 7.2 fl (7.5-11.1); MONO % 10.1 % (3.8-10.2); NEUT % 84.9 % (42.8-82.8); PLATELET COUNT 400 10^3/uL (134-434); RBC 5.29 M/mm3 (4.00-5.60); RDW 15.6 % (11.9-15.9); WHITE BLOOD COUNT 14.2 K/mm3 (4.0-10.0)
[2023-11-18] MEDS ORDERED: INSULIN ASPART SLIDING SCALE (NOVOLOG) 1 VIAL SQ ONE (06:36)
[2023-11-18 06:48] LABS: POTASSIUM 4.5 mmol/L (3.5-5.1)
[2023-11-18 06:52] LABS: ALBUMIN 2.3 g/dl (3.4-5.0); BLOOD UREA NITROGEN 46.1 mg/dL (7-18); CALCIUM 7.9 mg/dL (8.5-10.1); MAGNESIUM 2.7 mg/dL (1.8-2.4)
[2023-11-18 06:55] LABS: CREATININE 1.4 mg/dL (0.55-1.3); PHOSPHOROUS 4.7 mg/dL (2.5-4.9)
[2023-11-18 06:57] LABS: BILIRUBIN,TOTAL 0.8 mg/dL (0.2-1); TOT PROT 6.1 g/dl (6.4-8.2)
[2023-11-18] MEDS: FUROSEMIDE 40 MG TABLET (FP) PO SCH (10:17)
[2023-11-18] MEDS: POLYETHYLENE GLYCOL (HEALTHYLAX) 3350 17 GM PACKET PO SCH (12:14)
[2023-11-19 06:34] LABS: BASO % 0.3 % (0-2.0); HEMATOCRIT 46.1 % (35.4-49); HEMOGLOBIN 15.9 GM/dL (11.7-16.9); LYMPH % 4.7 % (8-40); MCH 29.6 pg (25.7-33.7); MCHC 34.5 g/dl (32.0-35.9); MEAN CELL VOLUME 85.8 fl (80-96); MEAN PLT VOLUME 7.3 fl (7.5-11.1); MONO % 8.1 % (3.8-10.2); NEUT % 86.9 % (42.8-82.8); PLATELET COUNT 364 10^3/uL (134-434); RBC 5.37 M/mm3 (4.00-5.60); RDW 15.4 % (11.9-15.9); WHITE BLOOD COUNT 14.1 K/mm3 (4.0-10.0)
[2023-11-19] MEDS ORDERED: INSULIN ASPART SLIDING SCALE (NOVOLOG) 1 VIAL SQ ONE (06:36)
[2023-11-19 06:46] LABS: POTASSIUM 4.7 mmol/L (3.5-5.1)
[2023-11-19 06:49] LABS: BLOOD UREA NITROGEN 44.5 mg/dL (7-18); CALCIUM 7.7 mg/dL (8.5-10.1); MAGNESIUM 2.9 mg/dL (1.8-2.4)
[2023-11-19 06:50] LABS: ALBUMIN 2.3 g/dl (3.4-5.0)
[2023-11-19 06:53] LABS: CREATININE 1.3 mg/dL (0.55-1.3); PHOSPHOROUS 4.4 mg/dL (2.5-4.9)
[2023-11-19 06:55] LABS: BILIRUBIN,TOTAL 0.7 mg/dL (0.2-1)
[2023-11-19] MEDS: PIPERACILLIN/TAZOB 3.375 GM 3.375 GM in DEXTROSE 5%-WATER - 50 ML IVPB SCH (17:22)
[2023-11-19] MEDS: HYDROCORTISONE 1% TOPICAL CREAM 30 GM TUBE TP ONE (23:27)
[2023-11-20 08:21] LABS: POTASSIUM 4.3 mmol/L (3.5-5.1)
[2023-11-20 08:23] LABS: CALCIUM 7.8 mg/dL (8.5-10.1)
[2023-11-20 08:24] LABS: ALBUMIN 2.3 g/dl (3.4-5.0)
[2023-11-20 08:26] LABS: MAGNESIUM 2.7 mg/dL (1.8-2.4)
[2023-11-20 08:30] LABS: CREATININE 1.4 mg/dL (0.55-1.3)
[2023-11-20 08:31] LABS: BILIRUBIN,TOTAL 0.8 mg/dL (0.2-1)
[2023-11-20 14:27] VITALS: BMI 26.6
[2023-11-21 07:58] LABS: BASO % 0.3 % (0-2.0); HEMATOCRIT 44.8 % (35.4-49); HEMOGLOBIN 15.6 GM/dL (11.7-16.9); LYMPH % 3.8 % (8-40); MCH 29.9 pg (25.7-33.7); MCHC 34.9 g/dl (32.0-35.9); MEAN CELL VOLUME 85.9 fl (80-96); MEAN PLT VOLUME 7.2 fl (7.5-11.1); MONO % 8.3 % (3.8-10.2); NEUT % 85.6 % (42.8-82.8); PLATELET COUNT 325 10^3/uL (134-434); RBC 5.22 M/mm3 (4.00-5.60); RDW 15.1 % (11.9-15.9); WHITE BLOOD COUNT 14.7 K/mm3 (4.0-10.0)
[2023-11-21 08:21] LABS: POTASSIUM 4.1 mmol/L (3.5-5.1)
[2023-11-21 08:27] LABS: CALCIUM 7.9 mg/dL (8.5-10.1)
[2023-11-21 08:29] LABS: ALBUMIN 2.2 g/dl (3.4-5.0); BLOOD UREA NITROGEN 37.1 mg/dL (7-18)
[2023-11-21 08:30] LABS: CREATININE 1.3 mg/dL (0.55-1.3)
[2023-11-21 08:31] LABS: BILIRUBIN,TOTAL 0.8 mg/dL (0.2-1); TOT PROT 5.8 g/dl (6.4-8.2)
[2023-11-21] MEDS: FUROSEMIDE 40 MG/4 ML INJECTABLE VIAL IVPUSH ONE (11:16)
[2023-11-22 08:36] LABS: BASO % 0.5 % (0-2.0); EOS % 2.2 % (0-4.5); HEMATOCRIT 43.9 % (35.4-49); HEMOGLOBIN 15.1 GM/dL (11.7-16.9); LYMPH % 4.2 % (8-40); MCH 29.7 pg (25.7-33.7); MCHC 34.4 g/dl (32.0-35.9); MEAN CELL VOLUME 86.4 fl (80-96); MEAN PLT VOLUME 7.5 fl (7.5-11.1); MONO % 9.1 % (3.8-10.2); PLATELET COUNT 282 10^3/uL (134-434); RBC 5.08 M/mm3 (4.00-5.60); RDW 15.4 % (11.9-15.9); WHITE BLOOD COUNT 13.6 K/mm3 (4.0-10.0)
[2023-11-22 09:20] LABS: CALCIUM 8.2 mg/dL (8.5-10.1)
[2023-11-22] MEDS: FUROSEMIDE 40 MG TABLET (FP) PO SCH (09:20)
[2023-11-22 09:21] LABS: ALBUMIN 2.2 g/dl (3.4-5.0); BLOOD UREA NITROGEN 39.8 mg/dL (7-18)
[2023-11-22 09:24] LABS: CREATININE 1.2 mg/dL (0.55-1.3)
[2023-11-22 09:25] LABS: TOT PROT 5.9 g/dl (6.4-8.2)
[2023-11-22 09:27] LABS: BILIRUBIN,TOTAL 1.4 mg/dL (0.2-1)
[2023-11-22] MEDS ORDERED: POLYETHYLENE GLYCOL (HEALTHYLAX) 3350 17 GM PACKET PO PRN (09:56)
[2023-11-23 07:11] LABS: HEMATOCRIT 42.5 % (35.4-49); HEMOGLOBIN 14.2 GM/dL (11.7-16.9); MCH 29.1 pg (25.7-33.7); MCHC 33.5 g/dl (32.0-35.9); MEAN PLT VOLUME 7.6 fl (7.5-11.1); PLATELET COUNT 245 10^3/uL (134-434); RBC 4.88 M/mm3 (4.00-5.60); RDW 15.1 % (11.9-15.9); WHITE BLOOD COUNT 11.4 K/mm3 (4.0-10.0)
[2023-11-23 07:25] LABS: CALCIUM 8.2 mg/dL (8.5-10.1)
[2023-11-23 07:26] LABS: BLOOD UREA NITROGEN 33.3 mg/dL (7-18); MAGNESIUM 2.3 mg/dL (1.8-2.4)
[2023-11-23 07:29] LABS: PHOSPHOROUS 2.8 mg/dL (2.5-4.9)
[2023-11-23 07:32] LABS: CREATININE 1.2 mg/dL (0.55-1.3)
[2023-11-23] MEDS: MELATONIN 5 MG TABLETS PO PRN (21:57)
[2023-11-24 07:07] LABS: BASO % 0.6 % (0-2.0); EOS % 3.3 % (0-4.5); HEMATOCRIT 42.1 % (35.4-49); HEMOGLOBIN 14.2 GM/dL (11.7-16.9); LYMPH % 7.1 % (8-40); MCH 29.4 pg (25.7-33.7); MCHC 33.7 g/dl (32.0-35.9); MEAN CELL VOLUME 87.2 fl (80-96); MEAN PLT VOLUME 7.6 fl (7.5-11.1); MONO % 9.1 % (3.8-10.2); NEUT % 79.9 % (42.8-82.8); PLATELET COUNT 236 10^3/uL (134-434); RBC 4.83 M/mm3 (4.00-5.60); RDW 15.6 % (11.9-15.9); WHITE BLOOD COUNT 10.2 K/mm3 (4.0-10.0)
[2023-11-24 07:18] LABS: POTASSIUM 3.9 mmol/L (3.5-5.1)
[2023-11-24 07:23] LABS: CALCIUM 7.8 mg/dL (8.5-10.1)
[2023-11-24 07:24] LABS: BLOOD UREA NITROGEN 37.1 mg/dL (7-18); MAGNESIUM 2.3 mg/dL (1.8-2.4)
[2023-11-24 07:27] LABS: CREATININE 1.1 mg/dL (0.55-1.3); PHOSPHOROUS 2.9 mg/dL (2.5-4.9)
[2023-11-24 07:28] LABS: TOT PROT 5.5 g/dl (6.4-8.2)
[2023-11-24 07:29] LABS: BILIRUBIN,TOTAL 0.6 mg/dL (0.2-1)
[2023-11-25 07:14] LABS: BASO % 0.7 % (0-2.0); EOS % 3.2 % (0-4.5); HEMATOCRIT 43.2 % (35.4-49); HEMOGLOBIN 14.5 GM/dL (11.7-16.9); LYMPH % 6.6 % (8-40); MCH 29.1 pg (25.7-33.7); MCHC 33.5 g/dl (32.0-35.9); MEAN CELL VOLUME 86.8 fl (80-96); MEAN PLT VOLUME 7.5 fl (7.5-11.1); MONO % 7.9 % (3.8-10.2); NEUT % 81.6 % (42.8-82.8); PLATELET COUNT 230 10^3/uL (134-434); RBC 4.97 M/mm3 (4.00-5.60); RDW 15.5 % (11.9-15.9); WHITE BLOOD COUNT 9.4 K/mm3 (4.0-10.0)
[2023-11-25 07:33] LABS: POTASSIUM 3.9 mmol/L (3.5-5.1)
[2023-11-25 07:44] LABS: BLOOD UREA NITROGEN 31.7 mg/dL (7-18); CALCIUM 8.3 mg/dL (8.5-10.1)
[2023-11-25 07:45] LABS: ALBUMIN 2.3 g/dl (3.4-5.0); BILIRUBIN,TOTAL 0.5 mg/dL (0.2-1); TOT PROT 5.9 g/dl (6.4-8.2)
[2023-11-25] MEDS ORDERED: ALBUTEROL SO4 2.5/IPRATROPIUM 0.5 INH SOL 3 ML VIAL.NEB. NEB ONE (17:16)
[2023-11-25] MEDS: ALBUTEROL SO4 2.5/IPRATROPIUM 0.5 INH SOL 3 ML VIAL.NEB. NEB SCH (17:25)
[2023-11-26 06:05] LABS: BASO % 0.9 % (0-2.0); EOS % 3.7 % (0-4.5); HEMATOCRIT 43.2 % (35.4-49); HEMOGLOBIN 14.3 GM/dL (11.7-16.9); LYMPH % 8.4 % (8-40); MCH 28.9 pg (25.7-33.7); MCHC 33.2 g/dl (32.0-35.9); MEAN CELL VOLUME 87.1 fl (80-96); MEAN PLT VOLUME 7.2 fl (7.5-11.1); MONO % 9.5 % (3.8-10.2); NEUT % 77.5 % (42.8-82.8); PLATELET COUNT 205 10^3/uL (134-434); RBC 4.96 M/mm3 (4.00-5.60); RDW 15.8 % (11.9-15.9); WHITE BLOOD COUNT 9.3 K/mm3 (4.0-10.0)
[2023-11-26 06:27] LABS: POTASSIUM 3.8 mmol/L (3.5-5.1)
[2023-11-26 06:29] LABS: CALCIUM 8.2 mg/dL (8.5-10.1)
[2023-11-26 06:30] LABS: BLOOD UREA NITROGEN 30.4 mg/dL (7-18)
[2023-11-27] MEDS ORDERED: INSULIN ASPART SLIDING SCALE (NOVOLOG) 1 VIAL SQ ONE (06:45)
[2023-11-27 07:57] LABS: HEMATOCRIT 43.1 % (35.4-49); HEMOGLOBIN 14.6 GM/dL (11.7-16.9); MCH 29.5 pg (25.7-33.7); MCHC 33.8 g/dl (32.0-35.9); MEAN CELL VOLUME 87.5 fl (80-96); MEAN PLT VOLUME 7.4 fl (7.5-11.1); PLATELET COUNT 207 10^3/uL (134-434); RBC 4.93 M/mm3 (4.00-5.60); RDW 15.6 % (11.9-15.9); WHITE BLOOD COUNT 8.1 K/mm3 (4.0-10.0)
[2023-11-27 08:23] LABS: POTASSIUM 4.2 mmol/L (3.5-5.1)
[2023-11-27 08:26] LABS: CALCIUM 8.2 mg/dL (8.5-10.1)
[2023-11-27 08:27] LABS: BLOOD UREA NITROGEN 30.6 mg/dL (7-18)
[2023-11-27 08:30] LABS: CREATININE 1.1 mg/dL (0.55-1.3)
[2023-11-27] MEDS: AMINO ACIDS 4.25%/D5W 1,000 ML IV SCH (11:33)
[2023-11-27] MEDS: ENOXAPARIN NA (PORCINE) 40 MG/0.4 ML DISP.SYRIN SQ SCH (11:34)
[2023-11-28 09:50] LABS: HEMATOCRIT 43.2 % (35.4-49); HEMOGLOBIN 14.5 GM/dL (11.7-16.9); MCH 29.3 pg (25.7-33.7); MCHC 33.6 g/dl (32.0-35.9); MEAN PLT VOLUME 7.7 fl (7.5-11.1); PLATELET COUNT 186 10^3/uL (134-434); RBC 4.96 M/mm3 (4.00-5.60); RDW 15.7 % (11.9-15.9); WHITE BLOOD COUNT 7.7 K/mm3 (4.0-10.0)
[2023-11-28 09:59] LABS: POTASSIUM 4.1 mmol/L (3.5-5.1)
[2023-11-28 10:05] LABS: BLOOD UREA NITROGEN 34.3 mg/dL (7-18); CALCIUM 8.2 mg/dL (8.5-10.1)
[2023-11-29 07:03] LABS: POTASSIUM 4.3 mmol/L (3.5-5.1)
[2023-11-29 07:09] LABS: CALCIUM 8.4 mg/dL (8.5-10.1)
[2023-11-29 07:10] LABS: BLOOD UREA NITROGEN 37.8 mg/dL (7-18)
[2023-11-29 07:13] LABS: CREATININE 0.9 mg/dL (0.55-1.3)
[2023-11-29 07:14] LABS: ALBUMIN 2.2 g/dl (3.4-5.0)
[2023-11-29 07:17] LABS: BILIRUBIN,DIRECT 0.1 mg/dL (0.0-0.2)
[2023-11-29 07:19] LABS: BILIRUBIN,TOTAL 0.4 mg/dL (0.2-1)
[2023-11-29 07:31] LABS: HEMATOCRIT 42.4 % (35.4-49); HEMOGLOBIN 14.4 GM/dL (11.7-16.9); MCH 29.7 pg (25.7-33.7); MEAN CELL VOLUME 87.4 fl (80-96); MEAN PLT VOLUME 7.5 fl (7.5-11.1); PLATELET COUNT 193 10^3/uL (134-434); RBC 4.85 M/mm3 (4.00-5.60); RDW 15.7 % (11.9-15.9); WHITE BLOOD COUNT 6.7 K/mm3 (4.0-10.0)
[2023-11-29] MEDS: LACTOBACILLUS ACIDOPHILUS 1 TABLET PO SCH (15:20)
[2023-11-30 06:59] LABS: HEMATOCRIT 42.6 % (35.4-49); HEMOGLOBIN 14.9 GM/dL (11.7-16.9); MCH 30.2 pg (25.7-33.7); MCHC 35.1 g/dl (32.0-35.9); MEAN CELL VOLUME 86.1 fl (80-96); MEAN PLT VOLUME 7.5 fl (7.5-11.1); PLATELET COUNT 210 10^3/uL (134-434); RBC 4.95 M/mm3 (4.00-5.60); RDW 15.7 % (11.9-15.9); WHITE BLOOD COUNT 7.5 K/mm3 (4.0-10.0)
[2023-11-30 07:04] LABS: POTASSIUM 4.5 mmol/L (3.5-5.1)
[2023-11-30 07:06] LABS: CALCIUM 8.4 mg/dL (8.5-10.1)
[2023-11-30 07:07] LABS: BLOOD UREA NITROGEN 39.3 mg/dL (7-18)
[2023-11-30 07:10] LABS: CREATININE 0.9 mg/dL (0.55-1.3)
[2023-12-01] MEDS ORDERED: INSULIN ASPART SLIDING SCALE (NOVOLOG) 1 VIAL SQ ONE (06:37)
[2023-12-02 10:35] LABS: BLOOD UREA NITROGEN 42.8 mg/dL (7-18); CALCIUM 8.5 mg/dL (8.5-10.1); CREATININE 0.9 mg/dL (0.55-1.3); N-TERMINAL BNP 300.8 pg/ml (5-450); POTASSIUM 4.2 mmol/L (3.5-5.1)
[2023-12-02 14:08] VITALS: BP 112/72; PULSE 84; RESP 19; TEMP 98.4
== END 2023-12-02 18:59 | DRG 177 ==
LOC: JER 20:31 → JERBED 23:00 → J4S 11-09 20:28
PROVIDERS: ADMIT Internal Medicine; ATTEND Internal Medicine
PROC: XW033E5 Introduction of Remdesivir Anti-infective into Peripheral Vein, Percutaneous Approach, New Technology Group 5 (ICD-10-PCS; principal; 2023-11-09)
DX: U07.1 COVID-19 (principal); I50.33 Acute on chronic diastolic (congestive) heart failure; J12.82 Pneumonia due to coronavirus disease 2019; J96.01 Acute respiratory failure with hypoxia; J44.0 Chronic obstructive pulmonary disease with (acute) lower respiratory infection; N17.9 Acute kidney failure, unspecified; I13.0 Hypertensive heart and chronic kidney disease with heart failure and stage 1 through stage 4 chronic kidney disease, or unspecified chronic kidney disease; J44.1 Chronic obstructive pulmonary disease with (acute) exacerbation; I25.10 Atherosclerotic heart disease of native coronary artery without angina pectoris; E78.5 Hyperlipidemia, unspecified; I48.91 Unspecified atrial fibrillation; I95.1 Orthostatic hypotension; E87.70 Fluid overload, unspecified; N28.1 Cyst of kidney, acquired; I27.20 Pulmonary hypertension, unspecified; F32.A Depression, unspecified; G47.00 Insomnia, unspecified; E87.6 Hypokalemia; N18.9 Chronic kidney disease, unspecified; Z95.0 Presence of cardiac pacemaker; Z95.5 Presence of coronary angioplasty implant and graft; Z89.421 Acquired absence of other right toe(s); Z95.1 Presence of aortocoronary bypass graft
CPT/HCPCS: 0241U-QW; 36415; 71045-TC-FY; 76604-TC; 80048; 80053; 80076; 81003; 82803; 82962; 83735; 83880; 84100; 84484; 85025; 85027; 85379; 85610; 85730; 86140; 87040; 87070; 87086; 87205; 87635; 93005; 93010; 93306-TC; 93970-TC; 94010; 94640; 97116-GP; 97161-GP; 99285-25; J0248; J1100; J1644